=== PATIENT | male | born 1945 | race Caucasian/White ===

== ENCOUNTER 2017-02-25 07:17 | Day surgery (SDC) | payer MEDICARE ==
[2017-02-25] MEDS ORDERED: Sodium Chloride 0.9% 1,000 ML IV SCH (08:00)
[2017-02-25] MEDS ORDERED: Propofol 200 MG/20 ML SDV ONE (08:50)
--- NOTE | 2017-02-25 09:21 | PCM.OPNOTE ---
- General Post-Op/Procedure Note Date of Surgery/Procedure: 02/25/17 Operative Procedure(s): Esophageal gastroduodenoscopy with biopsy of the esophagus and stomach for Helicobacter pylori Findings: Mild gastric mucosal erythema, distal esophagitis, biopsies pending for Helicobacter pylori Pre Op Diagnosis: GERD Post-Op Diagnosis: Retained food in the stomach. Distal esophageal mucosal erythema. Gastric mucosa erythema biopsies pending for Helicobacter pylori. Primary Surgeon: Jc Guillermo Sr Condition: Good Free Text/Narrative:: Sidney is a 71-year-old male comes in because of significant problem with GERD causing significant pain whenever he eats. The risks and benefits were explained to him for an esophageal gastroduodenoscopy with possible biopsy. Anesthesia was given by nurse ecdis n navigation operator. During the procedure use 200 mg of propofol. The Olympus 180 scope was used. The tube was placed into the pharynx and esophagus without difficulty and advanced under direct vision. The distal part of the esophagus revealed erythema picture was taken of this. After entering the stomach noted significant amount of erythema and retained food particles. The pylorus was identified and the tube was placed into the first second part of the duodenum. Upon retraction of the tube noted no significant duodenal erythema there was core noted in the morning as well as in the stomach. The prepyloric area revealed mild erythema. Biopsy was done for Helicobacter pylori, Ramón. We got poor observation of the greater and lesser curvature secondary to retained food particles. We did a biopsy of the distal esophagus area for cytology. The remainder the esophagus was unremarkable we did not get a good observation of the vocal cords secondary to the patient coughing. The tube was removed the patient tolerated the procedure well. Preop: GERD. Postop: #1. Distal esophageal erythema biopsies pending for Helicobacter pylori. #2. Retained food particles in the stomach. #3. Mild gastric mucosal erythema. I will have him return the office once the biopsy is reported to
[2017-02-25 10:17] VITALS: BP 112/59
== END 2017-02-25 10:32 | disposition home or self-care (01) ==
LOC: JP.SDS 07:17
PROVIDERS: ATTEND Internal Medicine
DX: T18.2XXA Foreign body in stomach, initial encounter (principal); K31.89 Other diseases of stomach and duodenum; K22.8 Other specified diseases of esophagus; I10 Essential (primary) hypertension; E78.5 Hyperlipidemia, unspecified; F32.9 Major depressive disorder, single episode, unspecified; K21.9 Gastro-esophageal reflux disease without esophagitis; J44.9 Chronic obstructive pulmonary disease, unspecified; F17.210 Nicotine dependence, cigarettes, uncomplicated; Z88.0 Allergy status to penicillin; Z91.013 Allergy to seafood; Z88.8 Allergy status to other drugs, medicaments and biological substances
CPT/HCPCS: 43239; 87081; J2704; J7040; 88305

== ENCOUNTER 2017-03-04 08:47 | Day surgery (SDC) | payer MEDICARE ==
[2017-03-04] MEDS ORDERED: Sodium Chloride 0.9% 10 ML Syringe FLUSH PRN (09:00)
[2017-03-04 12:11] VITALS: BP 138/80
--- NOTE | 2017-03-04 15:22 | OR ---
DATE OF PROCEDURE: 03/04/2017 POSTOPERATIVE CARE: Postoperative care will be provided mainly at the [address] [place] [address] [facility] in conjunction with [facility]. PREOPERATIVE DIAGNOSIS: Cataract, left eye. PREOPERATIVE DIAGNOSIS: Cataract, left eye. PROCEDURE: Phacoemulsification with intraocular lens placement, left eye. ANESTHESIA: Topical and intracameral. ESTIMATED BLOOD LOSS: Minimal. COMPLICATIONS: None. PATHOLOGY SPECIMENS: None. SURGICAL FINDINGS: None. INDICATION FOR PROCEDURE: The patient is a 71-year-old male with history of a visually significant cataract in the left eye, which interfered with activities of daily living. This consisted of a nuclear sclerosis cataract. Following careful discussion of the risks, benefits and alternatives to cataract extraction with intraocular lens placement including blindness and , the patient elected to proceed, and informed, written consent was obtained prior to the procedure. DESCRIPTION OF THE PROCEDURE: The patient was previously identified, and a renee placed above the left eye. All sources, including the patient, indicated that the left eye was the correct eye. The patient was subsequently taken to the operating room where standard monitors were applied. The patient was then prepped and draped in the usual sterile fashion for ophthalmic surgery. Attention was first directed at the 12 o'clock position where a paracentesis port was fashioned. Shugar solution followed by Viscoat was instilled into the eye. Attention was then directed to the 8:30 position where a triplanar incision was made in a near-clear manner using a keratome. A continuous capsulorrhexis was then made using a combination of the cystotome and Utrata forceps. Hydrodissection was achieved using a balanced salt solution, and the lens rotated nicely. Phacoemulsification was then done using a modified ntyluv-lus-cwvkxev technique without complication. Phaco time was 14.44 CDE. The remaining cortex was removed using the irrigation/aspiration handpiece. Provisc was then instilled into the eye. A Technis lens, model [id number], at 23.5 diopters was then placed in the capsular bag using an [place] injector. The remaining viscoelastic was removed using the irrigation/aspiration forceps. All wounds were then checked and found to be watertight. The lid speculum and drapes were removed. Maxitrol ointment was placed in the patient's left eye, and the eye was shielded. The patient tolerated the procedure well. The patient was instructed to follow up tomorrow. All needle and sponge counts were correct at the end of the procedure. Faye Cook MD /[id number]
== END 2017-03-04 12:19 | disposition home or self-care (01) ==
LOC: JP.SDS 08:47
PROVIDERS: ATTEND Ophthalmology
DX: H26.9 Unspecified cataract (principal); I10 Essential (primary) hypertension; E78.5 Hyperlipidemia, unspecified; F17.200 Nicotine dependence, unspecified, uncomplicated; Z88.0 Allergy status to penicillin; Z88.8 Allergy status to other drugs, medicaments and biological substances; Z91.013 Allergy to seafood
CPT/HCPCS: 66984; C1780; J7050

== ENCOUNTER 2017-04-01 06:54 | Day surgery (SDC) | payer MEDICARE ==
[2017-04-01] MEDS ORDERED: Sodium Chloride 0.9% 10 ML Syringe FLUSH PRN (07:30)
[2017-04-01 09:14] VITALS: BP 153/71
--- NOTE | 2017-04-01 10:22 | OR ---
DATE OF PROCEDURE: 04/01/2017 POSTOPERATIVE CARE: Postoperative care will be provided mainly at the [address] [place] [address] [facility] in conjunction with [facility]. PREOPERATIVE DIAGNOSIS: Cataract, right eye. PREOPERATIVE DIAGNOSIS: Cataract, right eye. PROCEDURE: Phacoemulsification with intraocular lens placement, right eye. ANESTHESIA: Topical and intracameral. ESTIMATED BLOOD LOSS: Minimal. COMPLICATIONS: None. PATHOLOGY SPECIMENS: None. SURGICAL FINDINGS: None. INDICATION FOR PROCEDURE: The patient is a 71-year-old male with history of a visually significant cataract in the right eye, which interfered with activities of daily living. This consisted of a nuclear sclerosis cataract. Following careful discussion of the risks, benefits and alternatives to cataract extraction with intraocular lens placement including blindness and , the patient elected to proceed, and informed, written consent was obtained prior to the procedure. DESCRIPTION OF THE PROCEDURE: The patient was previously identified, and a renee placed above the right eye. All sources, including the patient, indicated that the right eye was the correct eye. The patient was subsequently taken to the operating room where standard monitors were applied. The patient was then prepped and draped in the usual sterile fashion for ophthalmic surgery. Attention was first directed at the 12 o'clock position where a paracentesis port was fashioned. Shugar solution followed by Viscoat was instilled into the eye. Attention was then directed to the 8:30 position where a triplanar incision was made in a near-clear manner using a keratome. A continuous capsulorrhexis was then made using a combination of the cystotome and Utrata forceps. Hydrodissection was achieved using a balanced salt solution, and the lens rotated nicely. Phacoemulsification was then done using a modified vphlmv-xel-efpoqnl technique without complication. Phaco time was 17.73 CDE. The remaining cortex was removed using the irrigation/aspiration handpiece. Provisc was then instilled into the eye. A Technis lens, model [id number], at 22.0 Diopters was then placed in the capsular bag using an Madrone injector. The remaining viscoelastic was removed using the irrigation/aspiration forceps. All wounds were then checked and found to be watertight. The lid speculum and drapes were removed. Maxitrol ointment was placed in the patient's right eye, and the eye was shielded. The patient tolerated the procedure well. The patient was instructed to follow up tomorrow. All needle and sponge counts were correct at the end of the procedure. Faye Cook MD /[id number]
== END 2017-04-01 09:23 | disposition home or self-care (01) ==
LOC: JP.SDS 06:54
PROVIDERS: ATTEND Ophthalmology
DX: H26.9 Unspecified cataract (principal); F17.200 Nicotine dependence, unspecified, uncomplicated; Z88.0 Allergy status to penicillin; Z88.8 Allergy status to other drugs, medicaments and biological substances; Z91.013 Allergy to seafood
CPT/HCPCS: 66984; C1780; J7050

== ENCOUNTER 2017-06-28 21:49 | Emergency (ER) | payer MEDICARE ==
[2017-06-28 22:31] VITALS: BP 139/103
[2017-06-29] MEDS ORDERED: Magnesium Citrate Solution 296 ML Bottle PO ONE (00:28)
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
--- NOTE | 2017-06-29 09:48 | CR ---
Abdomen 2V AP Flat Upright INDICATION: constip FINDINGS: Nonspecific bowel gas pattern. No evidence for small bowel obstruction or free air. Surgic al changes in the abdomen. Moderate stool and gas in the colon and rectum.
== END 2017-06-29 02:01 | disposition home or self-care (01) ==
LOC: JP.ED 21:49
DX: K56.41 Fecal impaction (principal); I25.10 Atherosclerotic heart disease of native coronary artery without angina pectoris; I10 Essential (primary) hypertension; I25.2 Old myocardial infarction; E78.00 Pure hypercholesterolemia, unspecified; J44.9 Chronic obstructive pulmonary disease, unspecified; K21.9 Gastro-esophageal reflux disease without esophagitis; F32.9 Major depressive disorder, single episode, unspecified; E05.90 Thyrotoxicosis, unspecified without thyrotoxic crisis or storm; Z95.1 Presence of aortocoronary bypass graft; Z98.49 Cataract extraction status, unspecified eye; Z98.890 Other specified postprocedural states; Z88.0 Allergy status to penicillin; Z88.8 Allergy status to other drugs, medicaments and biological substances; Z91.013 Allergy to seafood; Z79.82 Long term (current) use of aspirin; Z79.899 Other long term (current) drug therapy; Z87.891 Personal history of nicotine dependence
CPT/HCPCS: 36415; 74020; 80053; 81001; 85025; 99284; A9270; 99283

== ENCOUNTER 2017-08-28 15:02 | Emergency (ER) | payer MEDICARE ==
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
[2017-08-28] MEDS ORDERED: Sodium Chloride 0.9% 10 ML Syringe FLUSH PRN (16:52)
[2017-08-28] MEDS ORDERED: Iopamidol 755 Mg/ML 100 ML Bottle IV SCH (17:00)
[2017-08-28] MEDS ORDERED: Sodium Chloride 0.9% 100 ML IV SCH (17:00)
[2017-08-28 17:54] VITALS: BP 120/72
--- NOTE | 2017-08-30 08:58 | US ---
VL Duplex Lwr Ext Veins Comp FINDINGS: The common femoral through the popliteal veins were assessed with duplex imaging bilaterall y. The veins demonstrate complete compressibility. There is no evidence of intraluminal thrombus. The re is normal phasic variation of the waveform with respirations. There is augmented flow with calf co mpression. IMPRESSION: Normal bilateral lower extremity venous Doppler ultrasound.
--- NOTE | 2017-08-30 09:00 | CR ---
Portable chest Comparison: May 2017. The heart and vascular structures are unchanged. There is scarring in the right upper lung field. The re are no infiltrates or effusions. Impression: 1. Stable exam. No acute findings.
== END 2017-08-28 19:17 | disposition home or self-care (01) ==
LOC: JP.ED 15:02
DX: R06.4 Hyperventilation (principal); J44.9 Chronic obstructive pulmonary disease, unspecified; Z79.899 Other long term (current) drug therapy; Z88.0 Allergy status to penicillin; Z88.8 Allergy status to other drugs, medicaments and biological substances; Z91.013 Allergy to seafood
CPT/HCPCS: 36415; 36600; 71010; 71275; 80053; 81001; 82803; 83880; 84484; 85025; 93005; 93970; 99285; J7030; J7050; Q9967; 93010; 99284

== ENCOUNTER 2017-10-09 10:25 | Inpatient (IN) | payer MEDICARE ==
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
[2017-10-09] MEDS ORDERED: Sodium Chloride 0.9% 10 ML Syringe FLUSH PRN (12:14)
[2017-10-09] MEDS ORDERED: Sodium Chloride 0.9% 1,000 ML IV SCH (12:15)
[2017-10-09] MEDS ORDERED: Iopamidol 755 Mg/ML 100 ML Bottle IV SCH (13:00)
[2017-10-09] MEDS ORDERED: Sodium Chloride 0.9% 100 ML IV SCH (13:00)
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
[2017-10-09] MEDS ORDERED: Albuterol 8 GM Inhaler INH PRN (16:29)
[2017-10-09] MEDS ORDERED: Morphine 2 MG/ML Syringe IVPUSH PRN (16:29)
[2017-10-09] MEDS ORDERED: Ondansetron 4 MG/2 ML SDV IV PRN (16:29)
[2017-10-09] MEDS ORDERED: Levalbuterol HCl 1.25 MG/3 ML Neb NEB SCH (16:29)
[2017-10-09] MEDS ORDERED: Enoxaparin 40 MG/0.4 ML Syringe SUBCUT SCH (16:29)
[2017-10-09] MEDS ORDERED: Albuterol 0.083% 2.5 MG/3 ML Neb Soln NEB PRN (16:29)
[2017-10-09] MEDS ORDERED: oxyCODONE 5 MG Tab PO PRN (16:29)
[2017-10-09] MEDS ORDERED: Docusate Sodium 100 MG Cap PO PRN (16:29)
[2017-10-09] MEDS ORDERED: Polyethylene Glycol 3350 Powder 17 GM Packet PO PRN (16:29)
[2017-10-09] MEDS ORDERED: Magnesium Hydroxide 400 MG/5 ML Susp 30 ML Cup PO PRN (16:29)
[2017-10-09] MEDS ORDERED: Nitroglycerin 0.4 MG Tab.SL SL PRN (16:29)
[2017-10-09] MEDS: Cefepime 2 GM in Sodium Chloride 0.9% 50 ML IV SCH (17:30)
[2017-10-09] MEDS: Lactated Ringers 500 ML IV SCH ×2 (17:55→20:44)
[2017-10-09] MEDS: Levofloxacin/Dextrose 5%-Water 750 MG in Premix Bag 1 BAG IV SCH (18:00)
[2017-10-09] MEDS: Pantoprazole 40 MG Tab.CR PO SCH (18:40)
[2017-10-09] MEDS: Acetaminophen 325 MG Tab PO PRN (19:45)
[2017-10-09] MEDS: atorvaSTATin 20 MG Tab PO SCH (20:59)
[2017-10-09] MEDS: Metoprolol Tartrate 25 MG Tab PO SCH (20:59)
[2017-10-09] MEDS: Albuterol/Ipratropium 3.0-0.5 MG/3 ML Neb Soln NEB SCH (20:59)
[2017-10-09] MEDS ORDERED: Formoterol/Mometasone 200-5 MCG 8.8 GM Inhaler IH SCH (21:00)
[2017-10-09] MEDS: Tamsulosin 0.4 MG Cap.ER PO SCH (21:00)
[2017-10-09] MEDS: Lactated Ringers 1,000 ML IV SCH (22:44)
[2017-10-10] MEDS: Cefepime 2 GM in Sodium Chloride 0.9% 50 ML IV SCH (04:25)
[2017-10-10] MEDS: Albuterol/Ipratropium 3.0-0.5 MG/3 ML Neb Soln NEB SCH ×4 (07:06→20:00)
[2017-10-10] MEDS: Lactated Ringers 1,000 ML IV SCH ×2 (07:11→22:04)
[2017-10-10] MEDS ORDERED: Pantoprazole 40 MG Tab.CR PO SCH (07:30)
[2017-10-10] MEDS ORDERED: Potassium Chloride 20 MEQ Tab.ER PO ONE (08:00)
[2017-10-10] MEDS: Pantoprazole 40 MG Tab.CR PO SCH (08:03)
[2017-10-10] MEDS: Formoterol/Mometasone 200-5 MCG 8.8 GM Inhaler IH SCH ×2 (08:36→20:35)
[2017-10-10] MEDS: Metoprolol Tartrate 25 MG Tab PO SCH ×2 (09:02→20:37)
[2017-10-10] MEDS: Aspirin 81 MG Tab.EC PO SCH (09:03)
--- NOTE | 2017-10-10 09:40 | PCM.PN ---
- General Info Date of Service: 10/10/17 Subjective Update: Mr. Field has remained fairly stable since admission, vital signs have been good other than mild persistent elevation in heart rate. Temperature was elevated on admission but has remained within normal range since that time. He reports less shortness of breath, does have persistent cough with intermittent sputum production. Denies any current symptoms of chest pain or pressure. Troponin level remains elevated but has improved from admission. Functional Status: Reports: Tolerating Diet, Urinating - Review of Systems General: Reports: Fever, Weakness. Denies: Chills Pulmonary: Reports: Shortness of Breath, Cough, Sputum, Wheezing. Denies: Pleuritic Chest Pain, Hemoptysis Cardiovascular: Reports: No Symptoms Gastrointestinal: Reports: No Symptoms Musculoskeletal: Reports: No Symptoms - Patient Data Vitals - Most Recent: Last Vital Signs Temp 100.3 F 10/10/17 08:00 Pulse 98 10/10/17 09:02 Resp 19 10/10/17 08:00 BP 122/58 L 10/10/17 09:02 Pulse Ox 93 L 10/10/17 08:00 Weight - Most Recent: 199 lb 9.6 oz I&O - Last 24 Hours: Intake & Output 10/09/17 10/10/17 10/10/17 22:59 06:59 14:59 Intake Total 1180 2247 Output Total 550 450 550 Balance 630 1797 -550 Lab Results Last 24 Hours: Laboratory Results - last 24 hr 10/09/17 10/09/17 10/10/17 Range/Units 17:25 17:25 06:00 WBC 15.0 H (4.5-11.0) K/uL RBC 3.48 L (4.30-5.90) M/uL Hgb 11.8 L (12.0-15.0) g/dL Hct 35.4 L (40.0-54.0) % MCV 102 H (80-98) fL MCH 34 H (27-31) pg MCHC 33 (32-36) % Plt Count 202 (150-400) K/uL Neut % (Auto) 80 H (36-66) % Lymph % (Auto) 7 L (24-44) % [place] % (Auto) 13 H (2-6) % Eos % (Auto) 0 L (2-4) % Baso % (Auto) 0 (0-1) % Sodium (140-148) mmol/L Potassium (3.6-5.2) mmol/L Chloride (100-108) mmol/L Carbon Dioxide (21-32) mmol/L Anion Gap (5.0-14.0) mmol/L BUN (7-18) mg/dL Creatinine (0.8-1.3) mg/dL Est Cr Clr Drug Dosing mL/min Estimated GFR (MDRD) (>60) Glucose (74-106) mg/dL Lactic Acid 4.0 H (0.4-2.0) mmol/L Calcium (8.5-10.1) mg/dL Magnesium (1.8-2.4) mg/dL Troponin I 0.187 H* (0.000-0.056) ng/mL 10/10/17 10/10/17 Range/Units 06:06 07:37 WBC (4.5-11.0) K/uL RBC (4.30-5.90) M/uL Hgb (12.0-15.0) g/dL Hct (40.0-54.0) % MCV (80-98) fL MCH (27-31) pg MCHC (32-36) % Plt Count (150-400) K/uL Neut % (Auto) (36-66) % Lymph % (Auto) (24-44) % [place] % (Auto) (2-6) % Eos % (Auto) (2-4) % Baso % (Auto) (0-1) % Sodium 140 (140-148) mmol/L Potassium 3.4 L (3.6-5.2) mmol/L Chloride 108 (100-108) mmol/L Carbon Dioxide 24 (21-32) mmol/L Anion Gap 11.4 (5.0-14.0) mmol/L BUN 11 (7-18) mg/dL Creatinine 1.0 (0.8-1.3) mg/dL Est Cr Clr Drug Dosing 68.94 mL/min Estimated GFR (MDRD) > 60 (>60) Glucose 97 (74-106) mg/dL Lactic Acid 1.7 (0.4-2.0) mmol/L Calcium 8.5 (8.5-10.1) mg/dL Magnesium 1.9 (1.8-2.4) mg/dL Troponin I 0.102 H* (0.000-0.056) ng/mL [place] Results Last 24 Hours: Microbiology 10/09/17 22:51 Gram Stain - Final Sputum - Expectorated Med Orders - Current: Current Medications Acetaminophen (Tylenol) 650 mg PO Q4H PRN PRN Reason: Pain (Mild 1-3)/fever Last Admin: 10/09/17 19:45 Dose: 650 mg Albuterol (Proventil Neb Soln) 2.5 mg NEB Q4H PRN PRN Reason: Shortness Of Breath/wheezing Albuterol/Ipratropium (Duoneb 3.0-0.5 Mg/3 Ml) 3 ml NEB QIDRT [facility] Last Admin: 10/10/17 07:06 Dose: 3 ml Aspirin (Halfprin) 81 mg PO DAILY [facility] Last Admin: 10/10/17 09:03 Dose: 81 mg Atorvastatin Calcium (Lipitor) 20 mg PO BEDTIME [facility] Last Admin: 10/09/17 20:59 Dose: 20 mg Docusate Sodium (Colace) 100 mg PO BID PRN PRN Reason: Constipation Enoxaparin Sodium (Lovenox) 40 mg SUBCUT Q24H [facility] Levofloxacin/Dextrose 750 mg/ (Premix) 150 mls @ 100 mls/hr IV Q24H [facility] Last Admin: 10/09/17 18:00 Dose: 100 mls/hr Cefepime HCl 2 gm/ Sodium (Chloride) 100 mls @ 200 mls/hr IV Q12H [facility] Lactated Ringer's (Ringers, Lactated) 1,000 mls @ 60 mls/hr IV ASDIRECTED [facility] Magnesium Hydroxide (Milk Of Magnesia) 30 ml PO Q12H PRN PRN Reason: Constipation Metoprolol Tartrate (Lopressor) 12.5 mg PO BID [facility] Last Admin: 10/10/17 09:02 Dose: 12.5 mg Mometasone Furoate/Formoterol Fumar (Dulera 200-5 Mcg) 2 puff IH BIDRT [facility] Last Admin: 10/10/17 08:36 Dose: 2 puff Morphine Sulfate (Morphine) 2 mg IVPUSH Q30M PRN PRN Reason: Pain (severe 7-10) Nitroglycerin (Nitrostat) 0.4 mg SL Q5M PRN PRN Reason: Chest Pain Non-Formulary Medication (Umeclidinium [place] [Incruse Ellipta*]) 62.5 mcg IH DAILY [facility] Ondansetron HCl (Zofran) 4 mg IV Q4H PRN PRN Reason: Nausea/Vomiting Oxycodone HCl (Oxycodone) 5 mg PO Q4H PRN PRN Reason: Pain (moderate 4-6) Pantoprazole Sodium (Protonix) 40 mg PO ACBREAKFAST [facility] Last Admin: 10/10/17 08:03 Dose: 40 mg Polyethylene Glycol (Miralax) 17 gm PO DAILY PRN PRN Reason: Constipation Ranitidine HCl (Zantac) 75 mg PO BEDTIME PRN PRN Reason: HEARTBURN Last Admin: 10/09/17 20:52 Dose: 75 mg Tamsulosin HCl (Flomax) 0.4 mg PO BEDTIME [facility] Last Admin: 10/09/17 21:00 Dose: 0.4 mg Discontinued Medications Albuterol (Ventolin Hfa) gm INH Q4H PRN PRN Reason: Shortness of Breath Enoxaparin Sodium (Lovenox) 40 mg SUBCUT DAILY [facility] Last Admin: 10/09/17 17:25 Dose: 40 mg Sodium Chloride (Normal Saline) 1,000 mls @ 500 mls/hr IV ASDIRECTED [facility] Last Admin: 10/09/17 14:04 Dose: 500 mls/hr Sodium Chloride (Normal Saline) 100 mls @ 4 mls/sec IV ASDIRECTED [facility] Stop: 10/09/17 23:00 Last Admin: 10/09/17 13:11 Dose: 4 mls/sec Cefepime HCl 2 gm/ Sodium (Chloride) 50 mls @ 100 mls/hr IV Q12H [facility] Last Admin: 10/10/17 04:25 Dose: 100 mls/hr Lactated Ringer's (Ringers, Lactated) 500 mls @ 500 mls/hr IV .BOLUS [facility] Stop: 10/09/17 20:30 Last Admin: 10/09/17 20:44 Dose: 500 mls/hr Lactated Ringer's (Ringers, Lactated) 1,000 mls @ 125 mls/hr IV ASDIRECTED [facility] Last Admin: 10/10/17 07:11 Dose: 125 mls/hr Iopamidol (Isovue-370 (76%)) 100 ml IV . DIRECTED [facility] Stop: 10/09/17 23:00 Last Admin: 10/09/17 13:11 Dose: 100 ml Levalbuterol HCl (Xopenex) 1.25 mg NEB QID [facility] Last Admin: 10/09/17 21:38 Dose: Not Given Mometasone Furoate/Formoterol Fumar (Dulera 200-5 Mcg) 2 puff IH BID [facility] Last Admin: 10/09/17 21:30 Dose: 2 puff Potassium Chloride (Klor-Con M20) 40 meq PO ONETIME ONE Stop: 10/10/17 08:01 Last Admin: 10/10/17 08:12 Dose: 40 meq Sodium Chloride (Saline Flush) 10 ml FLUSH ASDIRECTED PRN PRN Reason: Keep Vein Open - Exam Quality Assessment: Supplemental Oxygen, DVT Prophylaxis General: Alert, Oriented, Cooperative, Mild Distress Lungs: Normal Respiratory Effort, Decreased Breath Sounds, Rhonchi, Wheezing. No: Crackles, Rales, Rub, Stridor Cardiovascular: Regular Rhythm, Tachycardia, Murmurs. No: Irregular Rhythm, Bradycardia GI/Abdominal Exam: Soft, Non-Tender, No Organomegaly, No Distention Extremities: Non-Tender, No Pedal Edema Skin: Warm, Dry - Problem List Review Problem List Initiated/Reviewed/Updated: Yes - My Orders Last 24 Hours: My Active Orders 10/09/17 15:32 Resuscitation Status Routine 10/09/17 16:29 Patient Status [ADT] Routine Ambulate [RC] QID Height and Weight [RC] 0511 Intake and Output [RC] QSHIFT Notify Provider Vital Signs [RC] ASDIRECTED Oxygen Therapy [RC] PRN RT Aerosol Therapy [RC] ASDIRECTED Up With Assistance [RC] ASDIRECTED Up to Chair [RC] QID VTE/DVT Education [RC] Per Unit Routine Vital Signs [RC] Q2H Acetaminophen [Tylenol] 650 mg PO Q4H PRN Albuterol [Proventil Neb Soln] 2.5 mg NEB Q4H PRN Docusate Sodium [Colace] 100 mg PO BID PRN Magnesium Hydroxide [Milk of Magnesia] 30 ml PO Q12H PRN Morphine 2 mg IVPUSH Q30M PRN Ondansetron [Zofran] 4 mg IV Q4H PRN Polyethylene Glycol 3350 [MiraLAX] 17 gm PO DAILY PRN oxyCODONE 5 mg PO Q4H PRN Peripheral IV Insertion Adult [OM.PC] Routine 10/09/17 17:00 Levofloxacin/Dextrose 5%-Water [Levaquin in D5W 750 MG/150 ML] 750 mg Premix Bag 1 bag IV Q24H 10/09/17 18:24 Pantoprazole [ProTONIX] 40 mg PO ACBREAKFAST 10/09/17 21:00 Albuterol/Ipratropium [DuoNeb 3.0-0.5 MG/3 ML] 3 ml NEB QIDRT 10/09/17 22:51 CULTURE RESPIRATORY + SMEAR [RM] Stat 10/09/17 Lunch 2 Gram Sodium Diet [DIET] 10/10/17 08:00 Mometasone/Formoterol [Dulera 200-5 MCG] 2 puff IH BIDRT 10/10/17 09:34 Discontinue Telemetry Monitoring [Cardiac Monitoring Discontinue] [RC] Click to Edit 10/10/17 09:45 Lactated Ringers [Ringers, Lactated] 1,000 ml IV ASDIRECTED 10/10/17 16:00 Enoxaparin [Lovenox] 40 mg SUBCUT Q24H 10/10/17 17:00 Cefepime [Maxipime] 2 gm Sodium Chloride 0.9% [Normal Saline] 100 ml IV Q12H 10/11/17 05:00 BASIC METABOLIC PANEL,BMP [CHEM] Timed CBC WITH AUTO DIFF [HEME] Timed TROPONIN I [CHEM] Timed - Plan Plan:: ASSESSMENT AND PLAN BILATERAL PNEUMONIA WITH SEPSIS-improved since admission, continues to have mild tachycardia but is otherwise been hemodynamically stable. Lactic acid level has normalized and blood pressure is been within the desired range. -Blood and sputum cultures pending -Decrease IV rate lactated Ringer's to 60 mL/h -Expanded IV antibiotic coverage because of history of recent oral antibiotic use; cefepime and levofloxacin CORONARY ARTERY DISEASE-chest pain associated with shortness of breath and elevated troponin as noted above, likely secondary to current pneumonia and hypoxia. Elevated troponin likely related to demand ischemia in the setting of hypoxia and respiratory compromise. Troponin level has improved from admission but remains modestly elevated. -Recheck troponin level in a.m. HYPOXIC RESPIRATORY FAILURE-secondary to bilateral pneumonia and underlying COPD. he is noted to have bilateral expiratory wheezes on exam today, will plan to add IV Solu-Medrol to current regimen -Supplemental oxygen as needed -Nebulized albuterol and duo nebs -Solu-Medrol 40 mg IV every 8 hours -Continue outpatient medical regimen for management of COPD LEFT FACIAL WEAKNESS-this occurred with left arm weakness following his angiogram on Wednesday, no arm weakness today, left facial weakness seems to be improved MAINTENANCE ISSUES -DVT prophylaxis; Lovenox 40 mg subcutaneous daily -GI prophylaxis; continue outpatient PPI therapy -Muller catheter; not indicated -Nutrition; 2 g sodium diet -Nicotine dependence; not required CODE STATUS-FULL CODE ADMISSION STATUS-patient will be admitted to inpatient status, expect at least a 2 night hospital stay for evaluation and management of problems as outlined above. At the time of this admission I do not reasonably expected evaluation and management of this problem will require more than a 96 hour hospital stay. DISPOSITION-anticipate discharge to home after the hospital stay. PRIMARY CARE PROVIDER-Dr. Blaine Guillermo
[2017-10-10] MEDS: methylPREDNISolone Sodium Succinate 40 MG/1 ML SDV IVPUSH SCH ×2 (11:42→17:44)
[2017-10-10] MEDS: INCRUSE ELLIPTA 62.5MCG INHALER (PTOM) INH SCH (15:16)
[2017-10-10] MEDS: Enoxaparin 40 MG/0.4 ML Syringe SUBCUT SCH (15:17)
[2017-10-10] MEDS: Levofloxacin/Dextrose 5%-Water 750 MG in Premix Bag 1 BAG IV SCH (16:39)
[2017-10-10] MEDS: Cefepime 2 GM in Sodium Chloride 0.9% 100 ML IV SCH (18:12)
[2017-10-10] MEDS: atorvaSTATin 20 MG Tab PO SCH (20:38)
[2017-10-10] MEDS: Tamsulosin 0.4 MG Cap.ER PO SCH (20:38)
[2017-10-11] MEDS: methylPREDNISolone Sodium Succinate 40 MG/1 ML SDV IVPUSH SCH ×2 (02:16→09:44)
[2017-10-11] MEDS: Cefepime 2 GM in Sodium Chloride 0.9% 100 ML IV SCH ×2 (05:25→16:23)
[2017-10-11] MEDS: Pantoprazole 40 MG Tab.CR PO SCH (07:36)
[2017-10-11] MEDS: Formoterol/Mometasone 200-5 MCG 8.8 GM Inhaler IH SCH ×2 (07:43→20:52)
[2017-10-11] MEDS: Albuterol/Ipratropium 3.0-0.5 MG/3 ML Neb Soln NEB SCH ×4 (07:43→20:51)
[2017-10-11] MEDS: INCRUSE ELLIPTA 62.5MCG INHALER (PTOM) INH SCH (07:59)
[2017-10-11] MEDS: Metoprolol Tartrate 25 MG Tab PO SCH ×2 (08:12→20:51)
[2017-10-11] MEDS: Aspirin 81 MG Tab.EC PO SCH (08:13)
--- NOTE | 2017-10-11 09:32 | CR ---
Chest 2V INDICATION: sob COMPARISON: 08/28/2017 FINDINGS: Two views. Heart size normal. Sternotomy wires. Bilateral pulmonary infiltrates, right g reater than left. This may represent pneumonia. Atypical appearance of pulmonary edema also possible. No pleural effusions.
--- NOTE | 2017-10-11 11:55 | PCM.PN ---
- General Info Date of Service: 10/11/17 Functional Status: Reports: Pain Controlled, Tolerating Diet - Review of Systems General: Denies: Fever Pulmonary: Reports: Shortness of Breath, Cough Cardiovascular: Denies: Chest Pain Systems Review Comment:: No acute events overnight. Clinically he feels better with less shortness of breath and minimal cough. He has not had any fevers. He does continue to require 3 L of supplemental oxygen and this requirement has been stable. No complaints of pleuritic chest pain. Cultures have been negative so far. Vital signs have been stable. - Patient Data Vitals - Most Recent: Last Vital Signs Temp 36.3 C 10/11/17 11:11 Pulse 76 10/11/17 11:17 Resp 18 10/11/17 11:11 BP 129/58 L 10/11/17 11:11 Pulse Ox 91 L 10/11/17 11:17 Weight - Most Recent: 89.675 kg I&O - Last 24 Hours: Intake & Output 10/10/17 10/11/17 10/11/17 22:59 06:59 14:59 Intake Total 1110 743 240 Output Total 1250 350 850 Balance -140 393 -610 Lab Results Last 24 Hours: Laboratory Results - last 24 hr 10/11/17 10/11/17 Range/Units 05:45 05:45 WBC 7.1 (4.5-11.0) K/uL RBC 3.60 L (4.30-5.90) M/uL Hgb 12.0 (12.0-15.0) g/dL Hct 36.3 L (40.0-54.0) % MCV 101 H (80-98) fL MCH 33 H (27-31) pg MCHC 33 (32-36) % Plt Count 209 (150-400) K/uL Neut % (Auto) 91 H (36-66) % Lymph % (Auto) 5 L (24-44) % [place] % (Auto) 4 (2-6) % Eos % (Auto) 0 L (2-4) % Baso % (Auto) 0 (0-1) % Sodium 139 L (140-148) mmol/L Potassium 3.8 (3.6-5.2) mmol/L Chloride 108 (100-108) mmol/L Carbon Dioxide 23 (21-32) mmol/L Anion Gap 11.8 (5.0-14.0) mmol/L BUN 12 (7-18) mg/dL Creatinine 0.9 (0.8-1.3) mg/dL Est Cr Clr Drug Dosing 76.60 mL/min Estimated GFR (MDRD) > 60 (>60) Glucose 136 H (74-106) mg/dL Calcium 9.1 (8.5-10.1) mg/dL Troponin I 0.020 (0.000-0.056) ng/mL [place] Results Last 24 Hours: Microbiology 10/09/17 22:51 Gram Stain - Final Sputum - Expectorated Respiratory Culture - Preliminary NORMAL RESPIRATORY SHABBIR 1 DAY Med Orders - Current: Current Medications Acetaminophen (Tylenol) 650 mg PO Q4H PRN PRN Reason: Pain (Mild 1-3)/fever Last Admin: 10/09/17 19:45 Dose: 650 mg Albuterol (Proventil Neb Soln) 2.5 mg NEB Q4H PRN PRN Reason: Shortness Of Breath/wheezing Albuterol/Ipratropium (Duoneb 3.0-0.5 Mg/3 Ml) 3 ml NEB QIDRT [facility] Last Admin: 10/11/17 11:17 Dose: 3 ml Aspirin (Halfprin) 81 mg PO DAILY [facility] Last Admin: 10/11/17 08:13 Dose: 81 mg Atorvastatin Calcium (Lipitor) 20 mg PO BEDTIME [facility] Last Admin: 10/10/17 20:38 Dose: 20 mg Docusate Sodium (Colace) 100 mg PO BID PRN PRN Reason: Constipation Enoxaparin Sodium (Lovenox) 40 mg SUBCUT Q24H [facility] Last Admin: 10/10/17 15:17 Dose: 40 mg Levofloxacin/Dextrose 750 mg/ (Premix) 150 mls @ 100 mls/hr IV Q24H [facility] Last Admin: 10/10/17 16:39 Dose: 100 mls/hr Cefepime HCl 2 gm/ Sodium (Chloride) 100 mls @ 200 mls/hr IV Q12H [facility] Last Admin: 10/11/17 05:25 Dose: 200 mls/hr Lactated Ringer's (Ringers, Lactated) 1,000 mls @ 25 mls/hr IV ASDIRECTED [facility] Last Admin: 10/10/17 22:04 Dose: 60 mls/hr Magnesium Hydroxide (Milk Of Magnesia) 30 ml PO Q12H PRN PRN Reason: Constipation Metoprolol Tartrate (Lopressor) 12.5 mg PO BID [facility] Last Admin: 10/11/17 08:12 Dose: 12.5 mg Mometasone Furoate/Formoterol Fumar (Dulera 200-5 Mcg) 2 puff IH BIDRT [facility] Last Admin: 10/11/17 07:43 Dose: 2 puff Morphine Sulfate (Morphine) 2 mg IVPUSH Q30M PRN PRN Reason: Pain (severe 7-10) Nitroglycerin (Nitrostat) 0.4 mg SL Q5M PRN PRN Reason: Chest Pain Ondansetron HCl (Zofran) 4 mg IV Q4H PRN PRN Reason: Nausea/Vomiting Oxycodone HCl (Oxycodone) 5 mg PO Q4H PRN PRN Reason: Pain (moderate 4-6) Pantoprazole Sodium (Protonix) 40 mg PO ACBREAKFAST [facility] Last Admin: 10/11/17 07:36 Dose: 40 mg Incruse Ellipta 62. (5mcg Inhaler (Ptom)) 0 each INH DAILYRT [facility] Last Admin: 10/11/17 07:59 Dose: 1 each Polyethylene Glycol (Miralax) 17 gm PO DAILY PRN PRN Reason: Constipation Ranitidine HCl (Zantac) 75 mg PO BEDTIME PRN PRN Reason: HEARTBURN Last Admin: 10/09/17 20:52 Dose: 75 mg Tamsulosin HCl (Flomax) 0.4 mg PO BEDTIME [facility] Last Admin: 10/10/17 20:38 Dose: 0.4 mg Discontinued Medications Albuterol (Ventolin Hfa) gm INH Q4H PRN PRN Reason: Shortness of Breath Enoxaparin Sodium (Lovenox) 40 mg SUBCUT DAILY [facility] Last Admin: 10/09/17 17:25 Dose: 40 mg Sodium Chloride (Normal Saline) 1,000 mls @ 500 mls/hr IV ASDIRECTED [facility] Last Admin: 10/09/17 14:04 Dose: 500 mls/hr Sodium Chloride (Normal Saline) 100 mls @ 4 mls/sec IV ASDIRECTED [facility] Stop: 10/09/17 23:00 Last Admin: 10/09/17 13:11 Dose: 4 mls/sec Cefepime HCl 2 gm/ Sodium (Chloride) 50 mls @ 100 mls/hr IV Q12H [facility] Last Admin: 10/10/17 04:25 Dose: 100 mls/hr Lactated Ringer's (Ringers, Lactated) 500 mls @ 500 mls/hr IV .BOLUS [facility] Stop: 10/09/17 20:30 Last Admin: 10/09/17 20:44 Dose: 500 mls/hr Lactated Ringer's (Ringers, Lactated) 1,000 mls @ 125 mls/hr IV ASDIRECTED [facility] Last Admin: 10/10/17 07:11 Dose: 125 mls/hr Iopamidol (Isovue-370 (76%)) 100 ml IV . DIRECTED [facility] Stop: 10/09/17 23:00 Last Admin: 10/09/17 13:11 Dose: 100 ml Levalbuterol HCl (Xopenex) 1.25 mg NEB QID [facility] Last Admin: 10/09/17 21:38 Dose: Not Given Methylprednisolone Sodium Succinate (Solu-Medrol) 40 mg IVPUSH Q8H [facility] Last Admin: 10/11/17 09:44 Dose: 40 mg Mometasone Furoate/Formoterol Fumar (Dulera 200-5 Mcg) 2 puff IH BID [facility] Last Admin: 10/09/17 21:30 Dose: 2 puff Potassium Chloride (Klor-Con M20) 40 meq PO ONETIME ONE Stop: 10/10/17 08:01 Last Admin: 10/10/17 08:12 Dose: 40 meq Sodium Chloride (Saline Flush) 10 ml FLUSH ASDIRECTED PRN PRN Reason: Keep Vein Open - Exam Quality Assessment: Supplemental Oxygen General: Alert, Oriented, Cooperative, No Acute Distress Neck: Supple Lungs: Normal Respiratory Effort, Crackles (right mid and lower lung ) Cardiovascular: Regular Rate, Regular Rhythm, Murmurs GI/Abdominal Exam: Soft, No Distention Extremities: No Pedal Edema Psy/Mental Status: Alert, Normal Affect - Problem List Review Problem List Initiated/Reviewed/Updated: Yes - My Orders Last 24 Hours: My Active Orders 10/11/17 16:30 predniSONE 20 mg PO BIDAC - Plan Plan:: ASSESSMENT AND PLAN BILATERAL PNEUMONIA WITH SEPSIS - sepsis has resolved. Clinically feeling better but still requiring 3 L of supplemental oxygen. Cultures have been negative so far. He is not having any fevers. -Continue current antibiotics -IV fluid at to keep open -Supplement oxygen -Follow-up cultures Elevated troponin - he does have known coronary artery disease and had a low level troponin elevation at the time of admission. This level has normalized now. I suspect that the troponin leak was related to demand ischemia in the setting of significant pneumonia rather than an acute coronary event. He did have a recent angiogram and did not have any obstruction that was amenable to percutaneous intervention. -Continue medical management for coronary artery disease HYPOXIC RESPIRATORY FAILURE - secondary to bilateral pneumonia and underlying COPD. wheezing has resolved. Still requiring supplemental oxygen. -Supplemental oxygen as needed -Nebulized albuterol and duo nebs -Transition to prednisone -Continue outpatient medical regimen for management of COPD LEFT FACIAL WEAKNESS - this occurred with left arm weakness following his angiogram on 10/08. He has not had recurrence during the hospital stay. MAINTENANCE ISSUES -DVT prophylaxis; enoxaparin 40 mg subcutaneous daily -GI prophylaxis; continue outpatient PPI therapy -Muller catheter; not indicated -Nutrition; 2 g sodium diet DISPOSITION - anticipate discharge to home after the hospital stay. Kingsley Hardin M.D.
[2017-10-11] MEDS: predniSONE 20 MG Tab PO SCH (16:13)
[2017-10-11] MEDS: Enoxaparin 40 MG/0.4 ML Syringe SUBCUT SCH (16:13)
[2017-10-11] MEDS: Levofloxacin/Dextrose 5%-Water 750 MG in Premix Bag 1 BAG IV SCH (18:06)
[2017-10-11] MEDS: atorvaSTATin 20 MG Tab PO SCH (20:51)
[2017-10-11] MEDS: Tamsulosin 0.4 MG Cap.ER PO SCH (20:51)
[2017-10-12] MEDS: Lactated Ringers 1,000 ML IV SCH (01:51)
[2017-10-12] MEDS: Cefepime 2 GM in Sodium Chloride 0.9% 100 ML IV SCH ×2 (04:37→18:01)
[2017-10-12] MEDS: INCRUSE ELLIPTA 62.5MCG INHALER (PTOM) INH SCH (07:26)
[2017-10-12] MEDS: Formoterol/Mometasone 200-5 MCG 8.8 GM Inhaler IH SCH ×2 (07:26→21:40)
[2017-10-12] MEDS: Albuterol/Ipratropium 3.0-0.5 MG/3 ML Neb Soln NEB SCH ×4 (07:26→21:39)
[2017-10-12] MEDS: predniSONE 20 MG Tab PO SCH ×2 (08:32→16:26)
[2017-10-12] MEDS: Aspirin 81 MG Tab.EC PO SCH (08:33)
[2017-10-12] MEDS: Metoprolol Tartrate 25 MG Tab PO SCH ×2 (08:33→21:42)
[2017-10-12] MEDS: Pantoprazole 40 MG Tab.CR PO SCH (08:33)
--- NOTE | 2017-10-12 13:08 | PCM.PN ---
- General Info Date of Service: 10/12/17 Functional Status: Reports: Pain Controlled, Tolerating Diet, Ambulating - Review of Systems General: Reports: Weakness Pulmonary: Reports: Shortness of Breath, Cough Systems Review Comment:: No acute events overnight. He has not had any fevers. He has been able to increase his activity some. He feels less short of breath today. Supplemental oxygen is now down to 2-2.5 L/m. Cultures remain negative. Vital signs have been otherwise stable. Appetite has been good. - Patient Data Vitals - Most Recent: Last Vital Signs Temp 36.2 C 10/12/17 11:32 Pulse 53 L 10/12/17 11:32 Resp 16 10/12/17 11:32 BP 128/64 10/12/17 11:32 Pulse Ox 95 10/12/17 11:32 Weight - Most Recent: 89.403 kg I&O - Last 24 Hours: Intake & Output 10/11/17 10/12/17 10/12/17 22:59 06:59 14:59 Intake Total 490 668 360 Output Total 450 400 Balance 490 218 -40 [place] Results Last 24 Hours: Microbiology 10/09/17 22:51 Gram Stain - Final Sputum - Expectorated Respiratory Culture - Final NORMAL RESPIRATORY SHABBIR 2 DAYS Med Orders - Current: Current Medications Acetaminophen (Tylenol) 650 mg PO Q4H PRN PRN Reason: Pain (Mild 1-3)/fever Last Admin: 10/09/17 19:45 Dose: 650 mg Albuterol (Proventil Neb Soln) 2.5 mg NEB Q4H PRN PRN Reason: Shortness Of Breath/wheezing Albuterol/Ipratropium (Duoneb 3.0-0.5 Mg/3 Ml) 3 ml NEB QIDRT [facility] Last Admin: 10/12/17 10:56 Dose: 3 ml Aspirin (Halfprin) 81 mg PO DAILY [facility] Last Admin: 10/12/17 08:33 Dose: 81 mg Atorvastatin Calcium (Lipitor) 20 mg PO BEDTIME [facility] Last Admin: 10/11/17 20:51 Dose: 20 mg Docusate Sodium (Colace) 100 mg PO BID PRN PRN Reason: Constipation Enoxaparin Sodium (Lovenox) 40 mg SUBCUT Q24H [facility] Last Admin: 10/11/17 16:13 Dose: 40 mg Levofloxacin/Dextrose 750 mg/ (Premix) 150 mls @ 100 mls/hr IV Q24H [facility] Last Admin: 10/11/17 18:06 Dose: 100 mls/hr Cefepime HCl 2 gm/ Sodium (Chloride) 100 mls @ 200 mls/hr IV Q12H [facility] Last Admin: 10/12/17 04:37 Dose: 200 mls/hr Lactated Ringer's (Ringers, Lactated) 1,000 mls @ 25 mls/hr IV ASDIRECTED [facility] Last Admin: 10/12/17 01:51 Dose: 60 mls/hr Magnesium Hydroxide (Milk Of Magnesia) 30 ml PO Q12H PRN PRN Reason: Constipation Metoprolol Tartrate (Lopressor) 12.5 mg PO BID [facility] Last Admin: 10/12/17 08:33 Dose: 12.5 mg Mometasone Furoate/Formoterol Fumar (Dulera 200-5 Mcg) 2 puff IH BIDRT [facility] Last Admin: 10/12/17 07:26 Dose: 2 puff Morphine Sulfate (Morphine) 2 mg IVPUSH Q30M PRN PRN Reason: Pain (severe 7-10) Nitroglycerin (Nitrostat) 0.4 mg SL Q5M PRN PRN Reason: Chest Pain Ondansetron HCl (Zofran) 4 mg IV Q4H PRN PRN Reason: Nausea/Vomiting Oxycodone HCl (Oxycodone) 5 mg PO Q4H PRN PRN Reason: Pain (moderate 4-6) Pantoprazole Sodium (Protonix) 40 mg PO ACBREAKFAST [facility] Last Admin: 10/12/17 08:33 Dose: 40 mg Incruse Ellipta 62. (5mcg Inhaler (Ptom)) 0 each INH DAILYRT [facility] Last Admin: 10/12/17 07:26 Dose: 1 each Polyethylene Glycol (Miralax) 17 gm PO DAILY PRN PRN Reason: Constipation Prednisone (Prednisone) 20 mg PO BIDAC [facility] Last Admin: 10/12/17 08:32 Dose: 20 mg Ranitidine HCl (Zantac) 75 mg PO BEDTIME PRN PRN Reason: HEARTBURN Last Admin: 10/09/17 20:52 Dose: 75 mg Tamsulosin HCl (Flomax) 0.4 mg PO BEDTIME [facility] Last Admin: 10/11/17 20:51 Dose: 0.4 mg Discontinued Medications Albuterol (Ventolin Hfa) gm INH Q4H PRN PRN Reason: Shortness of Breath Enoxaparin Sodium (Lovenox) 40 mg SUBCUT DAILY [facility] Last Admin: 10/09/17 17:25 Dose: 40 mg Sodium Chloride (Normal Saline) 1,000 mls @ 500 mls/hr IV ASDIRECTED [facility] Last Admin: 10/09/17 14:04 Dose: 500 mls/hr Sodium Chloride (Normal Saline) 100 mls @ 4 mls/sec IV ASDIRECTED [facility] Stop: 10/09/17 23:00 Last Admin: 10/09/17 13:11 Dose: 4 mls/sec Cefepime HCl 2 gm/ Sodium (Chloride) 50 mls @ 100 mls/hr IV Q12H [facility] Last Admin: 10/10/17 04:25 Dose: 100 mls/hr Lactated Ringer's (Ringers, Lactated) 500 mls @ 500 mls/hr IV .BOLUS [facility] Stop: 10/09/17 20:30 Last Admin: 10/09/17 20:44 Dose: 500 mls/hr Lactated Ringer's (Ringers, Lactated) 1,000 mls @ 125 mls/hr IV ASDIRECTED [facility] Last Admin: 10/10/17 07:11 Dose: 125 mls/hr Iopamidol (Isovue-370 (76%)) 100 ml IV . DIRECTED [facility] Stop: 10/09/17 23:00 Last Admin: 10/09/17 13:11 Dose: 100 ml Levalbuterol HCl (Xopenex) 1.25 mg NEB QID [facility] Last Admin: 10/09/17 21:38 Dose: Not Given Methylprednisolone Sodium Succinate (Solu-Medrol) 40 mg IVPUSH Q8H [facility] Last Admin: 10/11/17 09:44 Dose: 40 mg Mometasone Furoate/Formoterol Fumar (Dulera 200-5 Mcg) 2 puff IH BID [facility] Last Admin: 10/09/17 21:30 Dose: 2 puff Potassium Chloride (Klor-Con M20) 40 meq PO ONETIME ONE Stop: 10/10/17 08:01 Last Admin: 10/10/17 08:12 Dose: 40 meq Sodium Chloride (Saline Flush) 10 ml FLUSH ASDIRECTED PRN PRN Reason: Keep Vein Open - Exam Quality Assessment: Supplemental Oxygen General: Alert, Oriented, Cooperative, No Acute Distress Neck: Supple Lungs: Normal Respiratory Effort, Crackles (rare right lung base). No: Wheezing Cardiovascular: Regular Rate, Regular Rhythm GI/Abdominal Exam: Soft, No Distention Extremities: No Pedal Edema Psy/Mental Status: Alert, Normal Affect - Problem List Review Problem List Initiated/Reviewed/Updated: Yes - My Orders Last 24 Hours: My Active Orders 10/11/17 16:30 predniSONE 20 mg PO BIDAC - Plan Plan:: ASSESSMENT AND PLAN BILATERAL PNEUMONIA WITH SEPSIS - sepsis has resolved. Clinically feeling better and supplemental oxygen requirement has been slowly decreasing. No evidence for volume overload. Clinical exam improving daily. -Continue current antibiotics, de-escalate tomorrow -IV fluid at to keep open -Supplement oxygen -Follow-up cultures HYPOXIC RESPIRATORY FAILURE - secondary to bilateral pneumonia and underlying COPD. no active wheezing. Still requiring supplemental oxygen. -Supplemental oxygen as needed -Nebulized albuterol and duo nebs -Continue prednisone -Continue outpatient medical regimen for management of COPD Elevated troponin - he does have known coronary artery disease and had a low level troponin elevation at the time of admission. This level has normalized now. I suspect that the troponin leak was related to demand ischemia in the setting of significant pneumonia rather than an acute coronary event. He did have a recent angiogram and did not have any obstruction that was amenable to percutaneous intervention. -Continue medical management for coronary artery disease LEFT FACIAL WEAKNESS - this occurred with left arm weakness following his angiogram on 10/08. He has not had recurrence during the hospital stay. MAINTENANCE ISSUES -DVT prophylaxis; enoxaparin 40 mg subcutaneous daily -GI prophylaxis; continue outpatient PPI therapy -Nutrition; 2 g sodium diet DISPOSITION - anticipate discharge to home after the hospital stay, hopefully in the next day or 2. Kingsley Hardin M.D.
[2017-10-12] MEDS: Enoxaparin 40 MG/0.4 ML Syringe SUBCUT SCH (16:26)
[2017-10-12] MEDS: Levofloxacin/Dextrose 5%-Water 750 MG in Premix Bag 1 BAG IV SCH (16:26)
[2017-10-12] MEDS: Tamsulosin 0.4 MG Cap.ER PO SCH (21:41)
[2017-10-12] MEDS: atorvaSTATin 20 MG Tab PO SCH (21:41)
[2017-10-13] MEDS: Cefepime 2 GM in Sodium Chloride 0.9% 100 ML IV SCH (04:51)
[2017-10-13] MEDS: Albuterol/Ipratropium 3.0-0.5 MG/3 ML Neb Soln NEB SCH ×4 (07:15→21:33)
[2017-10-13] MEDS: INCRUSE ELLIPTA 62.5MCG INHALER (PTOM) INH SCH (07:15)
[2017-10-13] MEDS: Formoterol/Mometasone 200-5 MCG 8.8 GM Inhaler IH SCH ×2 (07:15→21:33)
[2017-10-13] MEDS: Pantoprazole 40 MG Tab.CR PO SCH (08:24)
[2017-10-13] MEDS: predniSONE 20 MG Tab PO SCH (08:26)
[2017-10-13] MEDS: Aspirin 81 MG Tab.EC PO SCH (08:26)
[2017-10-13] MEDS: Metoprolol Tartrate 25 MG Tab PO SCH ×2 (08:40→21:33)
--- NOTE | 2017-10-13 09:19 | PCM.PN ---
- General Info Date of Service: 10/13/17 Functional Status: Reports: Pain Controlled, Tolerating Diet, Ambulating - Review of Systems General: Reports: Weakness Pulmonary: Reports: Shortness of Breath Systems Review Comment:: No acute events overnight. Supplemental oxygen requirement continues to decrease and he is now down to 1 L. He has been able to walk a little bit further in the past 24 hours than he had been. He does get fatigued and short of breath with activity but is able to make it a good distance down the hallway and back. Bowels have been moving. No complaints of chest pain. No fevers. - Patient Data Vitals - Most Recent: Last Vital Signs Temp 36.3 C 10/13/17 07:00 Pulse 87 10/13/17 08:40 Resp 18 10/13/17 07:00 BP 126/64 10/13/17 08:40 Pulse Ox 94 L 10/13/17 07:16 Weight - Most Recent: 89.925 kg I&O - Last 24 Hours: Intake & Output 10/12/17 10/13/17 10/13/17 22:59 06:59 14:59 Intake Total 1013 840 Output Total 600 1025 500 Balance 413 -185 -500 [place] Results Last 24 Hours: Microbiology 10/09/17 22:51 Gram Stain - Final Sputum - Expectorated Respiratory Culture - Final NORMAL RESPIRATORY SHABBIR 2 DAYS Med Orders - Current: Current Medications Acetaminophen (Tylenol) 650 mg PO Q4H PRN PRN Reason: Pain (Mild 1-3)/fever Last Admin: 10/09/17 19:45 Dose: 650 mg Albuterol (Proventil Neb Soln) 2.5 mg NEB Q4H PRN PRN Reason: Shortness Of Breath/wheezing Albuterol/Ipratropium (Duoneb 3.0-0.5 Mg/3 Ml) 3 ml NEB QIDRT [facility] Last Admin: 10/13/17 07:15 Dose: 3 ml Aspirin (Halfprin) 81 mg PO DAILY [facility] Last Admin: 10/13/17 08:26 Dose: 81 mg Atorvastatin Calcium (Lipitor) 20 mg PO BEDTIME [facility] Last Admin: 10/12/17 21:41 Dose: 20 mg Docusate Sodium (Colace) 100 mg PO BID PRN PRN Reason: Constipation Enoxaparin Sodium (Lovenox) 40 mg SUBCUT Q24H [facility] Last Admin: 10/12/17 16:26 Dose: 40 mg Levofloxacin (Levaquin) 500 mg PO Q24H [facility] Levofloxacin (Levaquin) 250 mg PO Q24H [facility] Magnesium Hydroxide (Milk Of Magnesia) 30 ml PO Q12H PRN PRN Reason: Constipation Metoprolol Tartrate (Lopressor) 12.5 mg PO BID [facility] Last Admin: 10/13/17 08:40 Dose: 12.5 mg Mometasone Furoate/Formoterol Fumar (Dulera 200-5 Mcg) 2 puff IH BIDRT [facility] Last Admin: 10/13/17 07:15 Dose: 2 puff Morphine Sulfate (Morphine) 2 mg IVPUSH Q30M PRN PRN Reason: Pain (severe 7-10) Nitroglycerin (Nitrostat) 0.4 mg SL Q5M PRN PRN Reason: Chest Pain Ondansetron HCl (Zofran) 4 mg IV Q4H PRN PRN Reason: Nausea/Vomiting Oxycodone HCl (Oxycodone) 5 mg PO Q4H PRN PRN Reason: Pain (moderate 4-6) Pantoprazole Sodium (Protonix) 40 mg PO ACBREAKFAST [facility] Last Admin: 10/13/17 08:24 Dose: 40 mg Incruse Ellipta 62. (5mcg Inhaler (Ptom)) 0 each INH DAILYRT [facility] Last Admin: 10/13/17 07:15 Dose: 1 each Polyethylene Glycol (Miralax) 17 gm PO DAILY PRN PRN Reason: Constipation Prednisone (Prednisone) 20 mg PO WITHBREAKFAST [facility] Ranitidine HCl (Zantac) 75 mg PO BEDTIME PRN PRN Reason: HEARTBURN Last Admin: 10/09/17 20:52 Dose: 75 mg Tamsulosin HCl (Flomax) 0.4 mg PO BEDTIME [facility] Last Admin: 10/12/17 21:41 Dose: 0.4 mg Discontinued Medications Albuterol (Ventolin Hfa) gm INH Q4H PRN PRN Reason: Shortness of Breath Enoxaparin Sodium (Lovenox) 40 mg SUBCUT DAILY [facility] Last Admin: 10/09/17 17:25 Dose: 40 mg Sodium Chloride (Normal Saline) 1,000 mls @ 500 mls/hr IV ASDIRECTED [facility] Last Admin: 10/09/17 14:04 Dose: 500 mls/hr Sodium Chloride (Normal Saline) 100 mls @ 4 mls/sec IV ASDIRECTED [facility] Stop: 10/09/17 23:00 Last Admin: 10/09/17 13:11 Dose: 4 mls/sec Cefepime HCl 2 gm/ Sodium (Chloride) 50 mls @ 100 mls/hr IV Q12H [facility] Last Admin: 10/10/17 04:25 Dose: 100 mls/hr Lactated Ringer's (Ringers, Lactated) 500 mls @ 500 mls/hr IV .BOLUS [facility] Stop: 10/09/17 20:30 Last Admin: 10/09/17 20:44 Dose: 500 mls/hr Lactated Ringer's (Ringers, Lactated) 1,000 mls @ 125 mls/hr IV ASDIRECTED [facility] Last Admin: 10/10/17 07:11 Dose: 125 mls/hr Levofloxacin/Dextrose 750 mg/ (Premix) 150 mls @ 100 mls/hr IV Q24H [facility] Last Admin: 10/12/17 16:26 Dose: 100 mls/hr Cefepime HCl 2 gm/ Sodium (Chloride) 100 mls @ 200 mls/hr IV Q12H [facility] Last Admin: 10/13/17 04:51 Dose: 200 mls/hr Lactated Ringer's (Ringers, Lactated) 1,000 mls @ 25 mls/hr IV ASDIRECTED [facility] Last Admin: 10/12/17 01:51 Dose: 60 mls/hr Iopamidol (Isovue-370 (76%)) 100 ml IV . DIRECTED [facility] Stop: 10/09/17 23:00 Last Admin: 10/09/17 13:11 Dose: 100 ml Levalbuterol HCl (Xopenex) 1.25 mg NEB QID [facility] Last Admin: 10/09/17 21:38 Dose: Not Given Methylprednisolone Sodium Succinate (Solu-Medrol) 40 mg IVPUSH Q8H [facility] Last Admin: 10/11/17 09:44 Dose: 40 mg Mometasone Furoate/Formoterol Fumar (Dulera 200-5 Mcg) 2 puff IH BID [facility] Last Admin: 10/09/17 21:30 Dose: 2 puff Potassium Chloride (Klor-Con M20) 40 meq PO ONETIME ONE Stop: 10/10/17 08:01 Last Admin: 10/10/17 08:12 Dose: 40 meq Prednisone (Prednisone) 20 mg PO BIDAC [facility] Last Admin: 10/13/17 08:26 Dose: 20 mg Sodium Chloride (Saline Flush) 10 ml FLUSH ASDIRECTED PRN PRN Reason: Keep Vein Open - Exam Quality Assessment: Supplemental Oxygen General: Alert, Oriented, Cooperative, No Acute Distress Lungs: Clear to Auscultation, Normal Respiratory Effort, Crackles (rare right lung base) Cardiovascular: Regular Rate, Regular Rhythm, Murmurs GI/Abdominal Exam: No Distention Extremities: No Pedal Edema Psy/Mental Status: Alert, Normal Affect - Problem List Review Problem List Initiated/Reviewed/Updated: Yes - My Orders Last 24 Hours: My Active Orders 10/12/17 Dinner Regular Diet [DIET] 10/13/17 09:14 Convert IV to Saline Lock [OM.PC] Routine 10/13/17 17:00 Levofloxacin [Levaquin] 250 mg PO Q24H Levofloxacin [Levaquin] 500 mg PO Q24H 10/14/17 08:00 predniSONE 20 mg PO WITHBREAKFAST - Plan Plan:: ASSESSMENT AND PLAN BILATERAL PNEUMONIA WITH SEPSIS - sepsis has resolved. Ongoing clinical improvement but still requiring supplemental oxygen. I suspect that we will be able to wean him off the oxygen the next 24 hours. Cultures have all been negative. -Discontinue cefepime -Change levofloxacin to oral -Saline lock IV -Supplement oxygen HYPOXIC RESPIRATORY FAILURE - secondary to bilateral pneumonia and underlying COPD. no active wheezing. Still requiring supplemental oxygen but continues to improve. -Supplemental oxygen as needed -Nebulized albuterol and duo nebs -Continue prednisone, decrease to once daily starting today -Continue outpatient medical regimen for management of COPD Elevated troponin - he does have known coronary artery disease and had a low level troponin elevation at the time of admission. This level has normalized now. I suspect that the troponin leak was related to demand ischemia in the setting of significant pneumonia rather than an acute coronary event. He did have a recent angiogram and did not have any obstruction that was amenable to percutaneous intervention. -Continue medical management for coronary artery disease LEFT FACIAL WEAKNESS - this occurred with left arm weakness following his angiogram on 10/08. No recurrence. MAINTENANCE ISSUES -DVT prophylaxis; enoxaparin 40 mg subcutaneous daily -GI prophylaxis; continue outpatient PPI therapy -Nutrition; regular diet DISPOSITION - anticipate discharge to home after the hospital stay, hopefully tomorrow. Kingsley Hardin M.D.
[2017-10-13] MEDS: Enoxaparin 40 MG/0.4 ML Syringe SUBCUT SCH (16:03)
[2017-10-13] MEDS ORDERED: Levofloxacin 250 MG Tab PO SCH (17:00)
[2017-10-13] MEDS ORDERED: Levofloxacin 500 MG Tab PO SCH (17:00)
[2017-10-13] MEDS: atorvaSTATin 20 MG Tab PO SCH (21:33)
[2017-10-13] MEDS: Tamsulosin 0.4 MG Cap.ER PO SCH (21:33)
[2017-10-14] MEDS: Acetaminophen 325 MG Tab PO PRN (03:17)
[2017-10-14 07:13] VITALS: BP 128/67
[2017-10-14] MEDS: Albuterol/Ipratropium 3.0-0.5 MG/3 ML Neb Soln NEB SCH ×2 (07:27→10:50)
[2017-10-14] MEDS: Formoterol/Mometasone 200-5 MCG 8.8 GM Inhaler IH SCH (07:28)
[2017-10-14] MEDS: INCRUSE ELLIPTA 62.5MCG INHALER (PTOM) INH SCH (07:29)
[2017-10-14] MEDS: Pantoprazole 40 MG Tab.CR PO SCH (07:59)
[2017-10-14] MEDS ORDERED: predniSONE 20 MG Tab PO SCH (08:00)
[2017-10-14] MEDS: Aspirin 81 MG Tab.EC PO SCH (08:01)
[2017-10-14] MEDS: Metoprolol Tartrate 25 MG Tab PO SCH (08:01)
--- NOTE | 2017-10-14 10:08 | PCM.DCSUM1 ---
Discharge Summary - Hospital Course Brief History: 71-year-old male with history of coronary artery disease and COPD with emphysema who presented with fever, cough and shortness of breath. He is admitted for management of bilateral pneumonia with sepsis syndrome. - Discharge Data Discharge Date: 10/14/17 Discharge Disposition: Home, Self-Care 01 Condition: Fair - Discharge Diagnosis/Problem(s) (1) Sepsis SNOMED Code(s): 21507011 ICD Code: A41.9 - SEPSIS, UNSPECIFIED ORGANISM Status: Acute Qualifiers: Sepsis type: sepsis due to unspecified organism Qualified Code(s): A41.9 - Sepsis, unspecified organism (2) Community acquired pneumonia SNOMED Code(s): 991762789 ICD Code: J18.9 - PNEUMONIA, UNSPECIFIED ORGANISM Status: Acute Qualifiers: Laterality: right Lung location: lower lobe of lung Qualified Code(s): J18.1 - Lobar pneumonia, unspecified organism (3) COPD (chronic obstructive pulmonary disease) SNOMED Code(s): 33910364 ICD Code: J44.9 - CHRONIC OBSTRUCTIVE PULMONARY DISEASE, UNSPECIFIED Status : Chronic Qualifiers: COPD type: emphysema Emphysema type: unspecified Qualified Code(s): J43.9 - Emphysema, unspecified (4) CAD (coronary artery disease) SNOMED Code(s): 77177092 ICD Code: I25.10 - ATHSCL HEART DISEASE OF [place] CORONARY ARTERY W/O ANG PCTRS Status: Chronic Qualifiers: Coronary Disease-Associated Artery/Lesion type: [place] artery [place] vs. transplanted heart: [place] heart Associated angina: without angina Qualified Code(s): I25.10 - Atherosclerotic heart disease of [place] coronary artery without angina pectoris (5) Acute respiratory failure with hypoxia SNOMED Code(s): 68431094 ICD Code: J96.01 - ACUTE RESPIRATORY FAILURE WITH HYPOXIA Status: Acute (6) Hypokalemia SNOMED Code(s): 15623107 ICD Code: E87.6 - HYPOKALEMIA Status: Acute (7) Elevated troponin SNOMED Code(s): 499436238 ICD Code: R74.8 - ABNORMAL LEVELS OF OTHER SERUM ENZYMES Status: Acute - Patient Summary/Data Hospital Course: Sidney presented to the emergency room on October 09 with shortness of breath and left-sided chest and neck pain. Workup in the emergency room revealed evidence for bilateral pneumonia and he developed evidence for sepsis while he was in the emergency room. Troponin level was also mildly elevated at the time of presentation. He was admitted to the hospital and started on broad-spectrum antibiotics because he had recently had a procedure done at a tertiary hospital. Cultures were obtained. He did receive some IV fluid resuscitation. The troponin leak was suspected to be caused by demand ischemia in the setting of hypoxia and pneumonia. He did have an angiogram performed only the day before which did not show disease that was amenable to intervention. history troponin level peaked at a low level and trended down early in the hospital stay.Over the next couple of days he showed slow but steady improvement. He did develop some wheezing on the day after admission and prednisone was initiated. Cultures were negative throughout the course of the hospital stay. With his ongoing clinical improvement we are able to de-escalate his antibiotics. He tolerated the discontinuation of cefepime and continued to be afebrile. We were able to wean him off of the supplemental oxygen day prior to discharge in the evening. He has been able to walk significant distances in the hospital without significant shortness of breath. On the day of discharge she was able to ambulate without any oxygen and did not desaturate. Cultures remained negative on the day of discharge. He will go home with 3 additional doses of levofloxacin and 2 more days of prednisone. He should follow-up in one week to make sure that he continues to get better. Also noted during the hospital stay was mild hypokalemia which responded well to replacement. He has been chest pain-free for several days. - Patient Instructions Diet: Heart Healthy Diet Activity: As Tolerated Driving: May Drive Today Showering/Bathing: May Shower Notify Provider of: Fever, Increased Pain, Nausea and/or Vomiting Other/Special Instructions: 1. You were in the hospital for management of bilateral pneumonia with sepsis syndrome. Your respiratory status has been improving with antibiotics and steroid therapy. I recommend 3 additional days of antibiotics with levofloxacin 750 mg to be taken once daily at suppertime. I also recommend 2 additional days of prednisone therapy which you should take once daily in the morning with breakfast. 2. Continue your usual home medications as previously prescribed. 3. Follow up with Dr. Guillermo in one week. 4. Please seek medical attention if you develop fever greater than 101, have sudden worsening of your shortness of breath or or if you develop chest pain or chest pressure. - Discharge Plan Prescriptions/Med Rec: Levofloxacin 750 mg PO QPM #3 tablet Prednisone [IJD: predniSONE] 20 mg PO WITHBREAKFAST #2 tablet Home Medications: Home Meds Tamsulosin [Flomax] 0.4 mg PO BEDTIME #30 cap.er 08/19/16 [Rx] atorvaSTATin [Lipitor] 20 mg PO BEDTIME #30 tablet 08/19/16 [Rx] Aspirin [Ecotrin] 81 mg PO DAILY 09/07/16 [History] Levalbuterol HCl [Xopenex] 1.25 mg NEB QID 03/01/17 [History] Metoprolol Tartrate [Lopressor] 12.5 mg PO BID 03/01/17 [History] Albuterol [Ventolin HFA] 2 puff INH Q4H PRN 10/09/17 [History] Isosorbide Mononitrate [Imdur] 15 mg PO DAILY 10/09/17 [History] Mometasone/Formoterol [Dulera 200-5 MCG] 2 puff INH BID 10/09/17 [History] Nitroglycerin 0.4 mg SL ASDIRECTED PRN 10/09/17 [History] Omeprazole 20 mg PO DAILY 10/09/17 [History] Ranitidine [Zantac] 75 mg PO BEDTIME PRN 10/09/17 [History] Umeclidinium [place] [Incruse Ellipta*] 62.5 mcg IH DAILY 10/09/17 [History] Levofloxacin 750 mg PO QPM #3 tablet 10/14/17 [Rx] Prednisone [IJD: predniSONE] 20 mg PO WITHBREAKFAST #2 tablet 10/14/17 [Rx] Patient Handouts: Levofloxacin tablets, Community-Acquired Pneumonia, Adult Referrals: Jc Guillermo Sr, MD [Primary Care Provider] - (f/u in 1 week - follow-up hospital stay for pneumonia) - Discharge Summary/Plan Comment DC Time >30 min.: No (25) - Patient Data Vitals - Most Recent: Last Vital Signs Temp 36.8 C 10/14/17 07:00 Pulse 66 10/14/17 08:01 Resp 16 10/14/17 07:00 BP 128/67 10/14/17 08:01 Pulse Ox 90 L 10/14/17 07:30 Weight - Most Recent: 88.995 kg I&O - Last 24 hours: Intake & Output 10/13/17 10/14/17 10/14/17 22:59 06:59 14:59 Intake Total 1320 920 Output Total 1400 1000 Balance -80 -1000 920 Med Orders - Current: Current Medications Acetaminophen (Tylenol) 650 mg PO Q4H PRN PRN Reason: Pain (Mild 1-3)/fever Last Admin: 10/14/17 03:17 Dose: 650 mg Albuterol (Proventil Neb Soln) 2.5 mg NEB Q4H PRN PRN Reason: Shortness Of Breath/wheezing Albuterol/Ipratropium (Duoneb 3.0-0.5 Mg/3 Ml) 3 ml NEB QIDRT [facility] Last Admin: 10/14/17 07:27 Dose: 3 ml Aspirin (Halfprin) 81 mg PO DAILY [facility] Last Admin: 10/14/17 08:01 Dose: 81 mg Atorvastatin Calcium (Lipitor) 20 mg PO BEDTIME [facility] Last Admin: 10/13/17 21:33 Dose: 20 mg Docusate Sodium (Colace) 100 mg PO BID PRN PRN Reason: Constipation Enoxaparin Sodium (Lovenox) 40 mg SUBCUT Q24H [facility] Last Admin: 10/13/17 16:03 Dose: 40 mg Levofloxacin (Levaquin) 500 mg PO Q24H [facility] Last Admin: 10/13/17 16:04 Dose: 500 mg Levofloxacin (Levaquin) 250 mg PO Q24H [facility] Last Admin: 10/13/17 16:04 Dose: 250 mg Magnesium Hydroxide (Milk Of Magnesia) 30 ml PO Q12H PRN PRN Reason: Constipation Metoprolol Tartrate (Lopressor) 12.5 mg PO BID [facility] Last Admin: 10/14/17 08:01 Dose: 12.5 mg Mometasone Furoate/Formoterol Fumar (Dulera 200-5 Mcg) 2 puff IH BIDRT [facility] Last Admin: 10/14/17 07:28 Dose: 2 puff Morphine Sulfate (Morphine) 2 mg IVPUSH Q30M PRN PRN Reason: Pain (severe 7-10) Nitroglycerin (Nitrostat) 0.4 mg SL Q5M PRN PRN Reason: Chest Pain Ondansetron HCl (Zofran) 4 mg IV Q4H PRN PRN Reason: Nausea/Vomiting Oxycodone HCl (Oxycodone) 5 mg PO Q4H PRN PRN Reason: Pain (moderate 4-6) Last Admin: 10/14/17 03:18 Dose: 5 mg Pantoprazole Sodium (Protonix) 40 mg PO ACBREAKFAST [facility] Last Admin: 10/14/17 07:59 Dose: 40 mg Incruse Ellipta 62. (5mcg Inhaler (Ptom)) 0 each INH DAILYRT [facility] Last Admin: 10/14/17 07:29 Dose: 1 each Polyethylene Glycol (Miralax) 17 gm PO DAILY PRN PRN Reason: Constipation Prednisone (Prednisone) 20 mg PO WITHBREAKFAST [facility] Last Admin: 10/14/17 08:01 Dose: 20 mg Ranitidine HCl (Zantac) 75 mg PO BEDTIME PRN PRN Reason: HEARTBURN Last Admin: 10/09/17 20:52 Dose: 75 mg Tamsulosin HCl (Flomax) 0.4 mg PO BEDTIME [facility] Last Admin: 10/13/17 21:33 Dose: 0.4 mg Discontinued Medications Albuterol (Ventolin Hfa) gm INH Q4H PRN PRN Reason: Shortness of Breath Enoxaparin Sodium (Lovenox) 40 mg SUBCUT DAILY [facility] Last Admin: 10/09/17 17:25 Dose: 40 mg Sodium Chloride (Normal Saline) 1,000 mls @ 500 mls/hr IV ASDIRECTED [facility] Last Admin: 10/09/17 14:04 Dose: 500 mls/hr Sodium Chloride (Normal Saline) 100 mls @ 4 mls/sec IV ASDIRECTED [facility] Stop: 10/09/17 23:00 Last Admin: 10/09/17 13:11 Dose: 4 mls/sec Cefepime HCl 2 gm/ Sodium (Chloride) 50 mls @ 100 mls/hr IV Q12H [facility] Last Admin: 10/10/17 04:25 Dose: 100 mls/hr Lactated Ringer's (Ringers, Lactated) 500 mls @ 500 mls/hr IV .BOLUS [facility] Stop: 10/09/17 20:30 Last Admin: 10/09/17 20:44 Dose: 500 mls/hr Lactated Ringer's (Ringers, Lactated) 1,000 mls @ 125 mls/hr IV ASDIRECTED [facility] Last Admin: 10/10/17 07:11 Dose: 125 mls/hr Levofloxacin/Dextrose 750 mg/ (Premix) 150 mls @ 100 mls/hr IV Q24H [facility] Last Admin: 10/12/17 16:26 Dose: 100 mls/hr Cefepime HCl 2 gm/ Sodium (Chloride) 100 mls @ 200 mls/hr IV Q12H [facility] Last Admin: 10/13/17 04:51 Dose: 200 mls/hr Lactated Ringer's (Ringers, Lactated) 1,000 mls @ 25 mls/hr IV ASDIRECTED [facility] Last Admin: 10/12/17 01:51 Dose: 60 mls/hr Iopamidol (Isovue-370 (76%)) 100 ml IV . DIRECTED [facility] Stop: 10/09/17 23:00 Last Admin: 10/09/17 13:11 Dose: 100 ml Levalbuterol HCl (Xopenex) 1.25 mg NEB QID [facility] Last Admin: 10/09/17 21:38 Dose: Not Given Methylprednisolone Sodium Succinate (Solu-Medrol) 40 mg IVPUSH Q8H [facility] Last Admin: 10/11/17 09:44 Dose: 40 mg Mometasone Furoate/Formoterol Fumar (Dulera 200-5 Mcg) 2 puff IH BID [facility] Last Admin: 10/09/17 21:30 Dose: 2 puff Potassium Chloride (Klor-Con M20) 40 meq PO ONETIME ONE Stop: 10/10/17 08:01 Last Admin: 10/10/17 08:12 Dose: 40 meq Prednisone (Prednisone) 20 mg PO BIDAC [facility] Last Admin: 10/13/17 08:26 Dose: 20 mg Sodium Chloride (Saline Flush) 10 ml FLUSH ASDIRECTED PRN PRN Reason: Keep Vein Open - Exam Quality Assessment: Denies: Supplemental Oxygen General: Reports: Alert, Oriented, Cooperative, No Acute Distress Lungs: Reports: Normal Respiratory Effort Cardiovascular: Reports: Regular Rate, Regular Rhythm Extremities: No Pedal Edema *Q Meaningful Use (DIS) - VTE *Q VTE Criteria *Q: - Stroke *Q Stroke Criteria *Q: - AMI *Q AMI Criteria *Q:
== END 2017-10-14 11:00 | disposition home or self-care (01) | DRG 871 ==
LOC: JP.ED 10:25 → JP.ICU 15:29 → JP.MS 10-10 10:28
PROVIDERS: ADMIT Hospitalist; ATTEND Internal Medicine
DX: A41.9 Sepsis, unspecified organism (principal); J18.1 Lobar pneumonia, unspecified organism; J96.01 Acute respiratory failure with hypoxia; R79.89 Other specified abnormal findings of blood chemistry; D50.9 Iron deficiency anemia, unspecified; E87.3 Alkalosis; J44.9 Chronic obstructive pulmonary disease, unspecified; I25.10 Atherosclerotic heart disease of native coronary artery without angina pectoris; R09.02 Hypoxemia; E78.00 Pure hypercholesterolemia, unspecified; I10 Essential (primary) hypertension; F32.9 Major depressive disorder, single episode, unspecified; E05.90 Thyrotoxicosis, unspecified without thyrotoxic crisis or storm; I25.2 Old myocardial infarction; E87.6 Hypokalemia; R74.8 Abnormal levels of other serum enzymes; Z95.1 Presence of aortocoronary bypass graft; Z79.899 Other long term (current) drug therapy; R29.810 Facial weakness; M62.81 Muscle weakness (generalized); Z88.0 Allergy status to penicillin; Z88.8 Allergy status to other drugs, medicaments and biological substances; Z87.891 Personal history of nicotine dependence
CPT/HCPCS: 36415; 36600; 71020 ×2; 71275; 80053; 82803; 83605; 83880; 84484; 85025; 87040 ×2; 87804 ×2; 93005; 96360; 99285; J7030; J7040; Q9967; 80048; 83735; 87070; 87205; 93010; 94640; 94640-76; 94664; A9270-GY; J0692; J1650; J1956; J2920; J7050; J7120; J7620

== ENCOUNTER 2018-01-10 15:32 | Inpatient (IN) | payer MEDICARE ==
[2018-01-10] MEDS ORDERED: Sodium Chloride 0.9% 10 ML Syringe FLUSH PRN (18:29)
[2018-01-10] MEDS ORDERED: Nitroglycerin 0.4 MG Tab.SL SL PRN (18:36)
[2018-01-10] MEDS ORDERED: Albuterol 8 GM Inhaler INH PRN (18:36)
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
[2018-01-10] MEDS: Metoprolol Tartrate 25 MG Tab PO SCH (20:35)
[2018-01-10] MEDS: atorvaSTATin 20 MG Tab PO SCH (20:35)
[2018-01-10] MEDS: Tamsulosin 0.4 MG Cap.ER PO SCH (20:35)
[2018-01-10] MEDS: Formoterol/Mometasone 200-5 MCG 8.8 GM Inhaler IH SCH (20:36)
[2018-01-10] MEDS: Levalbuterol HCl 1.25 MG/3 ML Neb NEB SCH (20:37)
[2018-01-11] MEDS ORDERED: Dextrose 5%-0.9% NaCl 1,000 ML IV SCH (07:15)
[2018-01-11] MEDS: Levalbuterol HCl 1.25 MG/3 ML Neb NEB SCH ×4 (07:21→20:29)
[2018-01-11] MEDS: Formoterol/Mometasone 200-5 MCG 8.8 GM Inhaler IH SCH ×2 (07:22→20:30)
[2018-01-11] MEDS ORDERED: Sodium Chloride 0.9% 80 ML IV SCH (07:45)
[2018-01-11] MEDS ORDERED: Iopamidol 612 MG/ML 150 ML Bottle IV PRN (07:45)
[2018-01-11] MEDS ORDERED: Sodium Chloride 0.9% 10 ML Syringe FLUSH PRN (07:45)
[2018-01-11] MEDS ORDERED: Iohexol 300 MG/ML 30 ML Bottle PO ONE (08:00)
[2018-01-11] MEDS ORDERED: Non-Formulary Medication 1 Each (Umeclidinium Bromide [Incruse Ellipta*] 62.5 MCG) IH SCH (09:00)
[2018-01-11] MEDS: Isosorbide Mononitrate 30 MG Tab.ER PO SCH (09:42)
[2018-01-11] MEDS: Aspirin 81 MG Tab.EC PO SCH (09:42)
[2018-01-11] MEDS: Metoprolol Tartrate 25 MG Tab PO SCH ×2 (09:43→20:30)
--- NOTE | 2018-01-11 10:47 | CT ---
CT ABDOMEN AND PELVIS WITH CONTRAST Clinical history: Abdominal pain, fever, leukocytosis Technique: Axial tomography images are obtained from the dome of the diaphragm to 4 the pelvis with i ntravenous and oral contrast enhancement. Coronal and sagittal images were reconstructed. Findings: There is a patchy right lower lobe pneumonic infiltrate. There are some chronic changes in the lung bases with some lower lobe bronchiectasis. This is greater on the right. There is a small ri ght-sided pleural effusion. The liver shows no mass or biliary dilatation. The spleen is normal size and shape. The gallbladder appears slightly contracted. There is no significant wall thickening identified on e current study. No stone is seen. There is no pericholecystic inflammatory change. The pancreas is f ree of mass or inflammatory change. There is a 1.4 x 1.2 cm right adrenal nodule. This is unchanged s nati 2016. There is a stable fusiform mid to distal abdominal aortic aneurysm extending into the [facility] t common iliac artery. Maximum dimension is 3.5 x 3.7 cm similar to prior study. Maximum right iliac artery dimension is 2 cm similar to prior study. There is some sigmoid diverticulosis without evidenc e of diverticulitis. There has been a previous right colectomy with an ileocolic anastomosis in the u pper abdomen. There is no evidence of obstruction. Scans into the pelvis show bilateral hydroceles. Impression: Right lower lobe pneumonic infiltrate with a small right pleural effusion. Stable right adrenal nodule. Stable fusiform mid to distal abdominal aortic aneurysm extending into the right common iliac artery Previous right colectomy Mild sigmoid diverticulosis without evidence of diverticulitis Slightly contracted gallbladder without obvious inflammatory change . Moderate bilateral hydroceles
[2018-01-11] MEDS: INCRUSE ELLIPTA 62.5MCG INHALER (PTOM) INH SCH (10:55)
[2018-01-11] MEDS: cefTRIAXone 1 GM in Sodium Chloride 0.9% 50 ML IV SCH (13:07)
[2018-01-11] MEDS: Levofloxacin/Dextrose 5%-Water 750 MG in Premix Bag 1 BAG IV SCH (14:02)
[2018-01-11] MEDS ORDERED: Levofloxacin/Dextrose 5%-Water 500 MG in Premix Bag 1 BAG IV SCH (14:30)
--- NOTE | 2018-01-11 18:39 | PCM.PN ---
- General Info Date of Service: 01/11/18 Subjective Update: Still has pain with a deep breath. - Review of Systems General: Reports: Weakness HEENT: Reports: No Symptoms Pulmonary: Reports: Shortness of Breath, Cough Cardiovascular: Reports: No Symptoms Gastrointestinal: Reports: No Symptoms Genitourinary: Reports: No Symptoms Musculoskeletal: Reports: No Symptoms Skin: Reports: No Symptoms Neurological: Reports: No Symptoms Psychiatric: Reports: No Symptoms - Patient Data Vitals - Most Recent: Last Vital Signs Temp 97.8 F 01/11/18 15:00 Pulse 71 01/11/18 15:00 Resp 18 01/11/18 15:00 BP 110/92 H 01/11/18 15:00 Pulse Ox 94 L 01/11/18 15:00 Weight - Most Recent: 196 lb I&O - Last 24 Hours: Intake & Output 01/11/18 01/11/18 01/11/18 06:59 14:59 22:59 Intake Total 430 Output Total 825 1000 Balance -825 430 -1000 Lab Results Last 24 Hours: Laboratory Results - last 24 hr 01/10/18 01/10/18 01/10/18 Range/Units 18:40 18:40 22:46 WBC 11.7 H (4.5-11.0) K/uL RBC 3.43 L (4.30-5.90) M/uL Hgb 11.8 L (12.0-15.0) g/dL Hct 34.9 L (40.0-54.0) % MCV 102 H (80-98) fL MCH 34 H (27-31) pg MCHC 34 (32-36) % Plt Count 233 (150-400) K/uL Neut % (Auto) (36-66) % Lymph % (Auto) (24-44) % Brooks % (Auto) (2-6) % Eos % (Auto) (2-4) % Baso % (Auto) (0-1) % Sodium 141 (140-148) mmol/L Potassium 3.9 (3.6-5.2) mmol/L Chloride 106 (100-108) mmol/L Carbon Dioxide 24 (21-32) mmol/L Anion Gap 10.7 (5.0-14.0) mmol/L BUN 11 (7-18) mg/dL Creatinine 1.2 (0.8-1.3) mg/dL Est Cr Clr Drug Dosing 58.39 mL/min Estimated GFR (MDRD) 59 L (>60) Glucose 99 (74-106) mg/dL Calcium 8.6 (8.5-10.1) mg/dL Total Bilirubin 0.9 (0.2-1.0) mg/dL AST 27 (15-37) U/L ALT 30 (12-78) U/L Alkaline Phosphatase 78 (46-116) U/L Total Protein 6.2 L (6.4-8.2) g/dL Albumin 3.1 L (3.4-5.0) g/dL Globulin 3.1 (2.3-3.5) g/dL Albumin/Globulin Ratio 1.0 L (1.2-2.2) Urine Color Yellow Urine Appearance Clear Urine pH 9.0 H (4.5-8.0) Ur Specific Greig 1.010 (1.008-1.030) Urine Protein Negative (NEGATIVE) mg/dL Urine Glucose (UA) Normal (NEGATIVE) mg/dL Urine Ketones Negative (NEGATIVE) mg/dL Urine Occult Blood Negative (NEGATIVE) Urine Nitrite Negative (NEGAITVE) Urine Bilirubin Negative (NEGATIVE) Urine Urobilinogen Normal (NORMAL) mg/dL Ur Leukocyte Esterase Negative (NEGATIVE) Urine RBC Not seen (0-5) Urine WBC Not seen (0-5) Ur Epithelial Cells Not seen Amorphous Sediment Few Urine Bacteria Not seen Urine Mucus Not seen 01/11/18 01/11/18 Range/Units 10:05 10:05 WBC 5.9 (4.5-11.0) K/uL RBC 3.42 L (4.30-5.90) M/uL Hgb 12.2 (12.0-15.0) g/dL Hct 34.5 L (40.0-54.0) % MCV 101 H (80-98) fL MCH 36 H (27-31) pg MCHC 35 (32-36) % Plt Count 166 (150-400) K/uL Neut % (Auto) 69 H (36-66) % Lymph % (Auto) 15 L (24-44) % Brooks % (Auto) 16 H (2-6) % Eos % (Auto) 1 L (2-4) % Baso % (Auto) 0 (0-1) % Sodium 138 L (140-148) mmol/L Potassium 3.5 L (3.6-5.2) mmol/L Chloride 105 (100-108) mmol/L Carbon Dioxide 23 (21-32) mmol/L Anion Gap 13.5 (5.0-14.0) mmol/L BUN 10 (7-18) mg/dL Creatinine 1.1 (0.8-1.3) mg/dL Est Cr Clr Drug Dosing 63.70 mL/min Estimated GFR (MDRD) > 60 (>60) Glucose 138 H (74-106) mg/dL Calcium 8.4 L (8.5-10.1) mg/dL Total Bilirubin (0.2-1.0) mg/dL AST (15-37) U/L ALT (12-78) U/L Alkaline Phosphatase (46-116) U/L Total Protein (6.4-8.2) g/dL Albumin (3.4-5.0) g/dL Globulin (2.3-3.5) g/dL Albumin/Globulin Ratio (1.2-2.2) Urine Color Urine Appearance Urine pH (4.5-8.0) Ur Specific Greig (1.008-1.030) Urine Protein (NEGATIVE) mg/dL Urine Glucose (UA) (NEGATIVE) mg/dL Urine Ketones (NEGATIVE) mg/dL Urine Occult Blood (NEGATIVE) Urine Nitrite (NEGAITVE) Urine Bilirubin (NEGATIVE) Urine Urobilinogen (NORMAL) mg/dL Ur Leukocyte Esterase (NEGATIVE) Urine RBC (0-5) Urine WBC (0-5) Ur Epithelial Cells Amorphous Sediment Urine Bacteria Urine Mucus Med Orders - Current: Current Medications Albuterol (Ventolin Hfa) 0 gm INH Q4H PRN PRN Reason: Shortness of Breath Aspirin (Halfprin) 81 mg PO DAILY [facility] Last Admin: 01/11/18 09:42 Dose: 81 mg Atorvastatin Calcium (Lipitor) 20 mg PO BEDTIME [facility] Last Admin: 01/10/18 20:35 Dose: 20 mg Dextrose/Sodium Chloride (Dextrose 5%-Normal Saline) 1,000 mls @ 125 mls/hr IV ASDIRECTED [facility] Last Admin: 01/11/18 07:30 Dose: 125 mls/hr Ceftriaxone Sodium 1 gm/ (Sodium Chloride) 50 mls @ 100 mls/hr IV Q24H [facility] Last Admin: 01/11/18 13:07 Dose: 100 mls/hr Levofloxacin/Dextrose 750 mg/ (Premix) 150 mls @ 150 mls/hr IV Q24H [facility] Last Admin: 01/11/18 14:02 Dose: 150 mls/hr Isosorbide Mononitrate (Imdur) 15 mg PO DAILY [facility] Last Admin: 01/11/18 09:42 Dose: 15 mg Levalbuterol HCl (Xopenex) 1.25 mg NEB QIDRT [facility] Last Admin: 01/11/18 14:34 Dose: 1.25 mg Metoprolol Tartrate (Lopressor) 25 mg PO BID [facility] Last Admin: 01/11/18 09:43 Dose: 25 mg Mometasone Furoate/Formoterol Fumar (Dulera 200-5 Mcg) 2 puff IH BIDRT [facility] Last Admin: 01/11/18 07:22 Dose: 2 puff Nitroglycerin (Nitrostat) 0.4 mg SL ASDIRECTED PRN PRN Reason: Chest Pain Incruse Ellipta 62. (5mcg Inhaler (Ptom)) 0 each INH DAILYRT [facility] Last Admin: 01/11/18 10:55 Dose: 1 each Ranitidine HCl (Zantac) 75 mg PO BEDTIME PRN PRN Reason: HEARTBURN Last Admin: 01/10/18 20:36 Dose: 75 mg Sodium Chloride (Saline Flush) 10 ml FLUSH ASDIRECTED PRN PRN Reason: Keep Vein Open Tamsulosin HCl (Flomax) 0.4 mg PO BEDTIME [facility] Last Admin: 01/10/18 20:35 Dose: 0.4 mg Discontinued Medications Sodium Chloride (Normal Saline) 80 mls @ 3.5 mls/sec IV ASDIRECTED [facility] Stop: 01/11/18 23:00 Last Admin: 01/11/18 08:44 Dose: 3.5 mls/sec Iohexol (Omnipaque) 20 ml PO ONETIME ONE Stop: 01/11/18 08:01 Last Admin: 01/11/18 07:37 Dose: 20 ml Iopamidol (Isovue-300 (61%)) 134 ml IV . DIRECTED PRN PRN Reason: RADIOLOGY EXAM Stop: 01/12/18 07:46 Last Admin: 01/11/18 08:45 Dose: 144 ml Sodium Chloride (Saline Flush) 10 ml FLUSH ONETIME PRN PRN Reason: per radiology protocol Stop: 01/11/18 23:00 Last Admin: 01/11/18 08:45 Dose: 10 ml - Exam General: Alert, Oriented HEENT: Pupils Equal, Pupils Reactive, EOMI, Mucous Membr. Moist/[place] Neck: Supple Lungs: Clear to Auscultation, Normal Respiratory Effort Cardiovascular: Regular Rate, Regular Rhythm GI/Abdominal Exam: Normal Bowel Sounds, Soft, No Distention, No Abnormal Bruit, No Mass, Pelvis Stable Peripheral Pulses: 1+: Radial (L), Radial (R) Psy/Mental Status: Alert, Normal Affect, Normal Mood - Problem List Review Problem List Initiated/Reviewed/Updated: Yes - My Orders Last 24 Hours: My Active Orders 01/10/18 18:29 Patient Status [ADT] Routine Height and Weight [RC] 0500 May Shower [RC] ASDIRECTED Oxygen Therapy [RC] PRN Up to Chair [RC] QID VTE/DVT Education [RC] Per Unit Routine Vital Signs [RC] Q4H Sodium Chloride 0.9% [Saline Flush] 10 ml FLUSH ASDIRECTED PRN Saline Lock Insert [OM.PC] Routine Resuscitation Status Routine 01/10/18 18:33 Cardiac Monitoring [RC] .As Directed Intake and Output [RC] QSHIFT 01/10/18 18:36 Albuterol [Ventolin HFA] 0 gm INH Q4H PRN Nitroglycerin [Nitrostat] 0.4 mg SL ASDIRECTED PRN 01/10/18 18:40 CULTURE BLOOD [BC] Urgent 01/10/18 18:43 EKG 12 Lead [EK] Routine 01/10/18 18:50 CULTURE BLOOD [BC] Urgent Blood Culture x2 Reflex Set [OM.PC] Urgent 01/10/18 19:00 Ranitidine [Zantac] 75 mg PO BEDTIME PRN 01/10/18 21:00 Levalbuterol HCl [Xopenex] 1.25 mg NEB QIDRT Metoprolol Tartrate [Lopressor] 25 mg PO BID Mometasone/Formoterol [Dulera 200-5 MCG] 2 puff IH BIDRT Tamsulosin [Flomax] 0.4 mg PO BEDTIME atorvaSTATin [Lipitor] 20 mg PO BEDTIME 01/10/18 21:13 SCD [Sequential Compression Device] [OM.PC] Routine 01/11/18 07:15 Dextrose 5%-0.9% NaCl [Dextrose 5%-Normal Saline] 1,000 ml IV ASDIRECTED 01/11/18 09:00 Aspirin [Halfprin] 81 mg PO DAILY Isosorbide Mononitrate [Imdur] 15 mg PO DAILY Patient's Own Medication [Ptom] 0 each INH DAILYRT 01/11/18 12:40 CULTURE RESPIRATORY + SMEAR [RM] Routine 01/11/18 13:00 Levofloxacin/Dextrose 5%-Water [Levaquin in D5W 750 MG/150 ML] 750 mg Premix Bag 1 bag IV Q24H 01/11/18 14:00 cefTRIAXone [Rocephin] 1 gm Sodium Chloride 0.9% [Normal Saline] 50 ml IV Q24H 01/11/18 Breakfast Regular Diet [DIET] 01/12/18 07:00 Cholescintigraphy w Pharm Int [NM] Routine - Plan Plan:: Assessment/Plan: #1. Right lower Lobe pneumonia: Ct of the abd was unremarkable but the CT showed a right lower lobe pneumonia. This explains his fever and pain on the right side worse with a cough. A CT of the chest was recently done but this developed in the interim. I have started him on Rocephin and Levofloxacin. #2. Abdominal pain: CT Scan pending tomorrow #3. ASHD: Stable. #4. Possible Sepsis: Blood cultures pending and blood work pending. #5. COPD: #5. Thyroid dysfunction on Meds.\ #6. GERD #7. Gall bladder dysfunction:
[2018-01-11] MEDS: atorvaSTATin 20 MG Tab PO SCH (20:29)
[2018-01-11] MEDS: Tamsulosin 0.4 MG Cap.ER PO SCH (20:29)
[2018-01-12] MEDS: Levalbuterol HCl 1.25 MG/3 ML Neb NEB SCH ×4 (07:25→20:50)
[2018-01-12] MEDS: Formoterol/Mometasone 200-5 MCG 8.8 GM Inhaler IH SCH ×2 (07:27→20:48)
[2018-01-12] MEDS: INCRUSE ELLIPTA 62.5MCG INHALER (PTOM) INH SCH (07:28)
[2018-01-12] MEDS: Isosorbide Mononitrate 30 MG Tab.ER PO SCH (10:29)
[2018-01-12] MEDS: Aspirin 81 MG Tab.EC PO SCH (10:29)
[2018-01-12] MEDS: Metoprolol Tartrate 25 MG Tab PO SCH ×2 (10:30→20:50)
--- NOTE | 2018-01-12 11:58 | NM ---
HEPATOBILIARY SCAN WITH EJECTION FRACTION: Clinical History: Right upper quadrant pain Multiple images of the hepatobiliary system were obtained following the IV injection of 5.32 mCi of t echnetium 99m Choletec. 60 minutes into the study the patient was given 8 ounces of intra or orally. Quantitative analysis of the gallbladder was performed. Findings: There is a normal pattern of hepatic uptake. Biliary activity is seen at 10 minutes.Gallbla dder activity is seen at 15minutes. Intestinal activity is seen at 30minutes. Following fatty meal, t kapil gallbladder ejection fraction was calculated at 17%. Impression:Normal appearance of the biliary tree and intestine The gallbladder ejection fraction wasabnormally low at 17%
[2018-01-12] MEDS: Levofloxacin/Dextrose 5%-Water 750 MG in Premix Bag 1 BAG IV SCH (14:57)
[2018-01-12] MEDS: cefTRIAXone 1 GM in Sodium Chloride 0.9% 50 ML IV SCH (16:35)
--- NOTE | 2018-01-12 17:30 | PCM.PN ---
- General Info Date of Service: 01/12/18 Functional Status: Reports: Pain Controlled - Review of Systems General: Reports: Weakness Pulmonary: Reports: Shortness of Breath, Cough Cardiovascular: Reports: No Symptoms Gastrointestinal: Reports: No Symptoms Genitourinary: Reports: No Symptoms Musculoskeletal: Reports: No Symptoms Skin: Reports: No Symptoms Neurological: Reports: No Symptoms Psychiatric: Reports: No Symptoms - Patient Data Vitals - Most Recent: Last Vital Signs Temp 98.2 F 01/12/18 15:03 Pulse 63 01/12/18 15:03 Resp 16 01/12/18 15:03 BP 117/62 01/12/18 15:03 Pulse Ox 95 01/12/18 15:03 Weight - Most Recent: 190 lb 12.8 oz I&O - Last 24 Hours: Intake & Output 01/12/18 01/12/18 01/12/18 06:59 14:59 22:59 Intake Total 240 150 Output Total 675 Balance -435 150 [place]ion Results Last 24 Hours: Microbiology 01/11/18 20:38 Gram Stain - Final Sputum - Expectorated 01/10/18 18:50 Aerobic Blood Culture - Preliminary Blood - Arm, Left NO GROWTH AFTER 1 DAY Anaerobic Blood Culture - Preliminary NO GROWTH AFTER 1 DAY 01/10/18 18:40 Aerobic Blood Culture - Preliminary Blood - Arm, Left NO GROWTH AFTER 1 DAY Anaerobic Blood Culture - Preliminary NO GROWTH AFTER 1 DAY Med Orders - Current: Current Medications Albuterol (Ventolin Hfa) 0 gm INH Q4H PRN PRN Reason: Shortness of Breath Aspirin (Halfprin) 81 mg PO DAILY [facility] Last Admin: 01/12/18 10:29 Dose: 81 mg Atorvastatin Calcium (Lipitor) 20 mg PO BEDTIME [facility] Last Admin: 01/11/18 20:29 Dose: 20 mg Dextrose/Sodium Chloride (Dextrose 5%-Normal Saline) 1,000 mls @ 125 mls/hr IV ASDIRECTED [facility] Last Admin: 01/11/18 07:30 Dose: 125 mls/hr Ceftriaxone Sodium 1 gm/ (Sodium Chloride) 50 mls @ 100 mls/hr IV Q24H [facility] Last Admin: 01/12/18 16:35 Dose: 100 mls/hr Levofloxacin/Dextrose 750 mg/ (Premix) 150 mls @ 150 mls/hr IV Q24H [facility] Last Admin: 01/12/18 14:57 Dose: 150 mls/hr Isosorbide Mononitrate (Imdur) 15 mg PO DAILY [facility] Last Admin: 01/12/18 10:29 Dose: 15 mg Levalbuterol HCl (Xopenex) 1.25 mg NEB QIDRT [facility] Last Admin: 01/12/18 14:37 Dose: 1.25 mg Metoprolol Tartrate (Lopressor) 25 mg PO BID [facility] Last Admin: 01/12/18 10:30 Dose: 25 mg Mometasone Furoate/Formoterol Fumar (Dulera 200-5 Mcg) 2 puff IH BIDRT [facility] Last Admin: 01/12/18 07:27 Dose: 2 puff Nitroglycerin (Nitrostat) 0.4 mg SL ASDIRECTED PRN PRN Reason: Chest Pain Incruse Ellipta 62. (5mcg Inhaler (Ptom)) 0 each INH DAILYRT [facility] Last Admin: 01/12/18 07:28 Dose: 1 each Ranitidine HCl (Zantac) 75 mg PO BEDTIME PRN PRN Reason: HEARTBURN Last Admin: 01/12/18 10:56 Dose: 75 mg Sodium Chloride (Saline Flush) 10 ml FLUSH ASDIRECTED PRN PRN Reason: Keep Vein Open Tamsulosin HCl (Flomax) 0.4 mg PO BEDTIME [facility] Last Admin: 01/11/18 20:29 Dose: 0.4 mg Discontinued Medications Sodium Chloride (Normal Saline) 80 mls @ 3.5 mls/sec IV ASDIRECTED [facility] Stop: 01/11/18 23:00 Last Admin: 01/11/18 08:44 Dose: 3.5 mls/sec Iohexol (Omnipaque) 20 ml PO ONETIME ONE Stop: 01/11/18 08:01 Last Admin: 01/11/18 07:37 Dose: 20 ml Iopamidol (Isovue-300 (61%)) 134 ml IV . DIRECTED PRN PRN Reason: RADIOLOGY EXAM Stop: 01/12/18 07:46 Last Admin: 01/11/18 08:45 Dose: 144 ml Sodium Chloride (Saline Flush) 10 ml FLUSH ONETIME PRN PRN Reason: per radiology protocol Stop: 01/11/18 23:00 Last Admin: 01/11/18 08:45 Dose: 10 ml - Exam General: Alert, Oriented HEENT: Pupils Equal, Pupils Reactive, EOMI, Mucous Membr. Moist/[place] Neck: Supple Lungs: Clear to Auscultation, Normal Respiratory Effort Cardiovascular: Regular Rate, Regular Rhythm GI/Abdominal Exam: Normal Bowel Sounds, Soft, Non-Tender, No Organomegaly, No Distention, No Abnormal Bruit, No Mass, Pelvis Stable Back Exam: Normal Inspection, Full Range of Motion Extremities: Normal Inspection, Normal Range of Motion, Non-Tender, No Pedal Edema, Normal Capillary Refill Peripheral Pulses: 1+: Radial (L), Radial (R) Neurological: No New Focal Deficit Psy/Mental Status: Alert, Normal Affect, Normal Mood - Problem List Review Problem List Initiated/Reviewed/Updated: Yes - My Orders Last 24 Hours: My Active Orders 01/11/18 20:38 CULTURE RESPIRATORY + SMEAR [RM] Routine 01/12/18 17:30 Potassium Chloride [Klor-Con M20] 20 meq PO DAILY 01/12/18 Breakfast NPO After Midnight [Nothing per Oral After Midnight Diet] [DIET] - Plan Plan:: Assessment/Plan: #1. Right lower Lobe pneumonia: Ct of the abd was unremarkable but the CT showed a right lower lobe pneumonia. This explains his fever and pain on the right side worse with a cough. A CT of the chest was recently done but this developed in the interim. I will continue with Rocephin and Levofloxacin. #2. Abdominal pain 2o to Cholecystitis: Hida scan showed ejection scan of 17% . He is not stable for surgery presently with the pneumonia. #3. ASHD: Stable. #4. Possible Sepsis: Blood cultures pending and blood work pending. #5. COPD: #5. Thyroid dysfunction on Meds.\ #6. GERD
[2018-01-12] MEDS: Potassium Chloride 20 MEQ Tab.ER PO SCH (18:38)
[2018-01-12] MEDS: Tamsulosin 0.4 MG Cap.ER PO SCH (20:49)
[2018-01-12] MEDS: atorvaSTATin 20 MG Tab PO SCH (20:49)
[2018-01-13] MEDS: Levalbuterol HCl 1.25 MG/3 ML Neb NEB SCH (07:26)
[2018-01-13] MEDS: INCRUSE ELLIPTA 62.5MCG INHALER (PTOM) INH SCH (07:26)
[2018-01-13] MEDS: Formoterol/Mometasone 200-5 MCG 8.8 GM Inhaler IH SCH (07:26)
[2018-01-13 07:55] VITALS: BP 119/62
[2018-01-13] MEDS: Isosorbide Mononitrate 30 MG Tab.ER PO SCH (08:03)
[2018-01-13] MEDS: Aspirin 81 MG Tab.EC PO SCH (08:03)
[2018-01-13] MEDS: Metoprolol Tartrate 25 MG Tab PO SCH (08:04)
--- NOTE | 2018-01-13 08:52 | PCM.PN ---
- General Info Date of Service: 01/13/18 Admission Dx/Problem (Free Text): He is feeling better today with minimual pain in the abd. Functional Status: Reports: Pain Controlled - Review of Systems General: Reports: Weakness HEENT: Reports: No Symptoms Pulmonary: Reports: Shortness of Breath, Cough Cardiovascular: Reports: No Symptoms Gastrointestinal: Reports: Abdominal Pain, Other Genitourinary: Reports: No Symptoms Musculoskeletal: Reports: No Symptoms Skin: Reports: No Symptoms Neurological: Reports: No Symptoms Psychiatric: Reports: No Symptoms - Patient Data Vitals - Most Recent: Last Vital Signs Temp 97.5 F 01/13/18 07:52 Pulse 65 01/13/18 08:04 Resp 16 01/13/18 07:52 BP 119/62 01/13/18 08:04 Pulse Ox 92 L 01/13/18 07:52 Weight - Most Recent: 190 lb I&O - Last 24 Hours: Intake & Output 01/12/18 01/13/18 01/13/18 22:59 06:59 14:59 Intake Total 390 Output Total 300 850 Balance 90 -850 Darrion Results Last 24 Hours: Microbiology 01/11/18 20:38 Gram Stain - Final Sputum - Expectorated Respiratory Culture - Preliminary NORMAL RESPIRATORY SHABBIR 1 DAY 01/10/18 18:50 Aerobic Blood Culture - Preliminary Blood - Arm, Left NO GROWTH AFTER 2 DAYS Anaerobic Blood Culture - Preliminary NO GROWTH AFTER 2 DAYS 01/10/18 18:40 Aerobic Blood Culture - Preliminary Blood - Arm, Left NO GROWTH AFTER 2 DAYS Anaerobic Blood Culture - Preliminary NO GROWTH AFTER 2 DAYS Med Orders - Current: Current Medications Albuterol (Ventolin Hfa) 0 gm INH Q4H PRN PRN Reason: Shortness of Breath Aspirin (Halfprin) 81 mg PO DAILY [facility] Last Admin: 01/13/18 08:03 Dose: 81 mg Atorvastatin Calcium (Lipitor) 20 mg PO BEDTIME [facility] Last Admin: 01/12/18 20:49 Dose: 20 mg Ceftriaxone Sodium 1 gm/ (Sodium Chloride) 50 mls @ 100 mls/hr IV Q24H [facility] Last Admin: 01/12/18 16:35 Dose: 100 mls/hr Levofloxacin/Dextrose 750 mg/ (Premix) 150 mls @ 150 mls/hr IV Q24H [facility] Last Admin: 01/12/18 14:57 Dose: 150 mls/hr Isosorbide Mononitrate (Imdur) 15 mg PO DAILY [facility] Last Admin: 01/13/18 08:03 Dose: 15 mg Levalbuterol HCl (Xopenex) 1.25 mg NEB QIDRT [facility] Last Admin: 01/13/18 07:26 Dose: 1.25 mg Metoprolol Tartrate (Lopressor) 25 mg PO BID [facility] Last Admin: 01/13/18 08:04 Dose: 25 mg Mometasone Furoate/Formoterol Fumar (Dulera 200-5 Mcg) 2 puff IH BIDRT [facility] Last Admin: 01/13/18 07:26 Dose: 2 puff Nitroglycerin (Nitrostat) 0.4 mg SL ASDIRECTED PRN PRN Reason: Chest Pain Incruse Ellipta 62. (5mcg Inhaler (Ptom)) 0 each INH DAILYRT [facility] Last Admin: 01/13/18 07:26 Dose: 1 each Potassium Chloride (Klor-Con M20) 20 meq PO DAILY [facility] Last Admin: 01/12/18 18:38 Dose: 20 meq Ranitidine HCl (Zantac) 75 mg PO BEDTIME PRN PRN Reason: HEARTBURN Last Admin: 01/12/18 20:49 Dose: 75 mg Sodium Chloride (Saline Flush) 10 ml FLUSH ASDIRECTED PRN PRN Reason: Keep Vein Open Tamsulosin HCl (Flomax) 0.4 mg PO BEDTIME [facility] Last Admin: 01/12/18 20:49 Dose: 0.4 mg Discontinued Medications Dextrose/Sodium Chloride (Dextrose 5%-Normal Saline) 1,000 mls @ 125 mls/hr IV ASDIRECTED [facility] Last Admin: 01/11/18 07:30 Dose: 125 mls/hr Sodium Chloride (Normal Saline) 80 mls @ 3.5 mls/sec IV ASDIRECTED [facility] Stop: 01/11/18 23:00 Last Admin: 01/11/18 08:44 Dose: 3.5 mls/sec Iohexol (Omnipaque) 20 ml PO ONETIME ONE Stop: 01/11/18 08:01 Last Admin: 01/11/18 07:37 Dose: 20 ml Iopamidol (Isovue-300 (61%)) 134 ml IV . DIRECTED PRN PRN Reason: RADIOLOGY EXAM Stop: 01/12/18 07:46 Last Admin: 01/11/18 08:45 Dose: 144 ml Sodium Chloride (Saline Flush) 10 ml FLUSH ONETIME PRN PRN Reason: per radiology protocol Stop: 01/11/18 23:00 Last Admin: 01/11/18 08:45 Dose: 10 ml - Exam General: Alert, Oriented HEENT: Pupils Equal, Pupils Reactive, EOMI, Mucous Membr. Moist/[place] Neck: Supple Lungs: Other (rales right lower lung field) GI/Abdominal Exam: Other (Pain upper right quad) Back Exam: Normal Inspection, Full Range of Motion Extremities: Normal Inspection, Normal Range of Motion, Non-Tender, No Pedal Edema, Normal Capillary Refill Peripheral Pulses: 1+: Radial (L), Radial (R) Skin: Warm, Dry, Intact Neurological: No New Focal Deficit Psy/Mental Status: Alert, Normal Affect, Normal Mood - Problem List Review Problem List Initiated/Reviewed/Updated: Yes - My Orders Last 24 Hours: My Active Orders 01/12/18 17:30 Potassium Chloride [Klor-Con M20] 20 meq PO DAILY 01/12/18 Breakfast NPO After Midnight [Nothing per Oral After Midnight Diet] [DIET] 01/13/18 08:20 Ready for Discharge [RC] PER UNIT ROUTINE - Plan Plan:: Assessment/Plan: #1. Right lower Lobe pneumonia: resolving with meds. Plan home today on meds. Zithromax and Levaquin #2. Abdominal pain: Cholecystitis surgery in 2-3 weeks after pneumonia cleared #3. ASHD: Stable. #4. Possible Sepsis: Blood cultures neg at day 2 #5. COPD: continue meds #5. Thyroid dysfunction on Meds. Will continue meds. #6. GERD. continue meds #7. Gall bladder dysfunction:
--- NOTE | 2018-01-13 08:57 | PCM.DCSUM1 ---
Discharge Summary - Hospital Course Brief History: Admitted with a fever of 102 at home and feeling week with a minimual cough which has been chronic. He had a history of expected GB problem and an Hida scan was pending. When he developed a fever and weakness with a cough an admission was advised. - Discharge Data Discharge Date: 01/13/18 Discharge Disposition: Home, Self-Care 01 Condition: Good - Patient Summary/Data Hospital Course: CT of the abd was done which showed pneumonia and treatment was begun. A Hida scan was done which showed an ejection fraction of 17%. He was given Rocephin and Levaquin and the fever resolved and he begun to feel better. He will come back for GB surgery once the pneumonia has cleared. His K+ was low and meds were given. - Patient Instructions Diet: Heart Healthy Diet Activity: As Tolerated - Discharge Plan Prescriptions/Med Rec: Azithromycin [Zithromax] 250 mg PO DAILY 6 Days #6 tab Levofloxacin [Levaquin] 500 mg PO Q48H 3 Days #6 tab Home Medications: Home Meds Tamsulosin [Flomax] 0.4 mg PO BEDTIME #30 cap.er 08/19/16 [Rx] atorvaSTATin [Lipitor] 20 mg PO BEDTIME #30 tablet 08/19/16 [Rx] Aspirin [Ecotrin] 81 mg PO DAILY 09/07/16 [History] Levalbuterol HCl [Xopenex] 1.25 mg NEB QID 03/01/17 [History] Metoprolol Tartrate [Lopressor] 25 mg PO BID 03/01/17 [History] Albuterol [Ventolin HFA] 2 puff INH Q4H PRN 10/09/17 [History] Isosorbide Mononitrate [Imdur] 15 mg PO DAILY 10/09/17 [History] Mometasone/Formoterol [Dulera 200-5 MCG] 2 puff INH BID 10/09/17 [History] Nitroglycerin 0.4 mg SL ASDIRECTED PRN 10/09/17 [History] Omeprazole 20 mg PO DAILY 10/09/17 [History] Ranitidine [Zantac] 75 mg PO BEDTIME PRN 10/09/17 [History] Umeclidinium [place] [Incruse Ellipta*] 62.5 mcg IH DAILY 10/09/17 [History] Azithromycin [Zithromax] 250 mg PO DAILY 6 Days #6 tab 01/13/18 [Rx] Levofloxacin [Levaquin] 500 mg PO Q48H 3 Days #6 tab 01/13/18 [Rx] Potassium Chloride [Klor-Con M20] 20 meq PO DAILY tab.er 01/13/18 [Rx] Patient Handouts: Cholelithiasis, Laparoscopic Cholecystectomy, Care After, [id number], Community-Acquired Pneumonia, Adult - Discharge Summary/Plan Comment DC Time >30 min.: Yes Discharge Summary/Plan Comment: Assessment/Plan: #1. Right lower Lobe pneumonia: resolving with meds. Plan home today on meds. Zithromax and Levaquin #2. Abdominal pain: Cholecystitis surgery in 2-3 weeks after pneumonia cleared #3. ASHD: Stable. #4. Possible Sepsis: Blood cultures neg at day 2 #5. COPD: continue meds #5. Thyroid dysfunction on Meds. Will continue meds. #6. GERD. continue meds #7. Gall bladder dysfunction: - General Info Functional Status: Reports: Pain Controlled - Review of Systems General: Reports: Weakness HEENT: Reports: No Symptoms Pulmonary: Reports: Shortness of Breath, Cough Cardiovascular: Reports: No Symptoms Gastrointestinal: Reports: No Symptoms Genitourinary: Reports: No Symptoms Musculoskeletal: Reports: No Symptoms Skin: Reports: No Symptoms Neurological: Reports: No Symptoms Psychiatric: Reports: No Symptoms - Patient Data Vitals - Most Recent: Last Vital Signs Temp 97.5 F 01/13/18 07:52 Pulse 65 01/13/18 08:04 Resp 16 01/13/18 07:52 BP 119/62 01/13/18 08:04 Pulse Ox 92 L 01/13/18 07:52 Weight - Most Recent: 190 lb I&O - Last 24 hours: Intake & Output 01/12/18 01/13/18 01/13/18 22:59 06:59 14:59 Intake Total 390 Output Total 300 850 Balance 90 -850 DELIO Results - Last 24 hrs: Microbiology 01/11/18 20:38 Gram Stain - Final Sputum - Expectorated Respiratory Culture - Preliminary NORMAL RESPIRATORY SHABBIR 1 DAY 01/10/18 18:50 Aerobic Blood Culture - Preliminary Blood - Arm, Left NO GROWTH AFTER 2 DAYS Anaerobic Blood Culture - Preliminary NO GROWTH AFTER 2 DAYS 01/10/18 18:40 Aerobic Blood Culture - Preliminary Blood - Arm, Left NO GROWTH AFTER 2 DAYS Anaerobic Blood Culture - Preliminary NO GROWTH AFTER 2 DAYS Med Orders - Current: Current Medications Albuterol (Ventolin Hfa) 0 gm INH Q4H PRN PRN Reason: Shortness of Breath Aspirin (Halfprin) 81 mg PO DAILY [facility] Last Admin: 01/13/18 08:03 Dose: 81 mg Atorvastatin Calcium (Lipitor) 20 mg PO BEDTIME [facility] Last Admin: 01/12/18 20:49 Dose: 20 mg Ceftriaxone Sodium 1 gm/ (Sodium Chloride) 50 mls @ 100 mls/hr IV Q24H [facility] Last Admin: 01/12/18 16:35 Dose: 100 mls/hr Levofloxacin/Dextrose 750 mg/ (Premix) 150 mls @ 150 mls/hr IV Q24H [facility] Last Admin: 01/12/18 14:57 Dose: 150 mls/hr Isosorbide Mononitrate (Imdur) 15 mg PO DAILY [facility] Last Admin: 01/13/18 08:03 Dose: 15 mg Levalbuterol HCl (Xopenex) 1.25 mg NEB QIDRT [facility] Last Admin: 01/13/18 07:26 Dose: 1.25 mg Metoprolol Tartrate (Lopressor) 25 mg PO BID [facility] Last Admin: 01/13/18 08:04 Dose: 25 mg Mometasone Furoate/Formoterol Fumar (Dulera 200-5 Mcg) 2 puff IH BIDRT [facility] Last Admin: 01/13/18 07:26 Dose: 2 puff Nitroglycerin (Nitrostat) 0.4 mg SL ASDIRECTED PRN PRN Reason: Chest Pain Incruse Ellipta 62. (5mcg Inhaler (Ptom)) 0 each INH DAILYRT [facility] Last Admin: 01/13/18 07:26 Dose: 1 each Potassium Chloride (Klor-Con M20) 20 meq PO DAILY [facility] Last Admin: 01/12/18 18:38 Dose: 20 meq Ranitidine HCl (Zantac) 75 mg PO BEDTIME PRN PRN Reason: HEARTBURN Last Admin: 01/12/18 20:49 Dose: 75 mg Sodium Chloride (Saline Flush) 10 ml FLUSH ASDIRECTED PRN PRN Reason: Keep Vein Open Tamsulosin HCl (Flomax) 0.4 mg PO BEDTIME [facility] Last Admin: 01/12/18 20:49 Dose: 0.4 mg Discontinued Medications Dextrose/Sodium Chloride (Dextrose 5%-Normal Saline) 1,000 mls @ 125 mls/hr IV ASDIRECTED [facility] Last Admin: 01/11/18 07:30 Dose: 125 mls/hr Sodium Chloride (Normal Saline) 80 mls @ 3.5 mls/sec IV ASDIRECTED [facility] Stop: 01/11/18 23:00 Last Admin: 01/11/18 08:44 Dose: 3.5 mls/sec Iohexol (Omnipaque) 20 ml PO ONETIME ONE Stop: 01/11/18 08:01 Last Admin: 01/11/18 07:37 Dose: 20 ml Iopamidol (Isovue-300 (61%)) 134 ml IV . DIRECTED PRN PRN Reason: RADIOLOGY EXAM Stop: 01/12/18 07:46 Last Admin: 01/11/18 08:45 Dose: 144 ml Sodium Chloride (Saline Flush) 10 ml FLUSH ONETIME PRN PRN Reason: per radiology protocol Stop: 01/11/18 23:00 Last Admin: 01/11/18 08:45 Dose: 10 ml - Exam General: Reports: Alert, Oriented HEENT: Reports: Pupils Equal, Pupils Reactive, EOMI, Mucous Membr. Moist/[place] Neck: Reports: Supple Lungs: Reports: Rales Cardiovascular: Reports: Regular Rate, Regular Rhythm GI/Abdominal Exam: Normal Bowel Sounds, Soft, No Organomegaly, No Distention, No Abnormal Bruit, No Mass, Pelvis Stable, Other (Pain upper right quad.) Back Exam: Reports: Normal Inspection, Full Range of Motion Extremities: Normal Inspection, Normal Range of Motion, Non-Tender, No Pedal Edema, Normal Capillary Refill Neurological: Reports: No New Focal Deficit Psy/Mental Status: Reports: Alert, Normal Affect, Normal Mood *Q Meaningful Use (DIS) - VTE *Q VTE Criteria *Q: - Stroke *Q Stroke Criteria *Q: - AMI *Q AMI Criteria *Q:
[2018-01-13] MEDS: Potassium Chloride 20 MEQ Tab.ER PO SCH (09:11)
== END 2018-01-13 09:42 | disposition home or self-care (01) | DRG 195 ==
LOC: JP.MS 15:32
PROVIDERS: ADMIT Internal Medicine; ATTEND Internal Medicine
DX: J18.1 Lobar pneumonia, unspecified organism (principal); I10 Essential (primary) hypertension; I25.10 Atherosclerotic heart disease of native coronary artery without angina pectoris; E78.00 Pure hypercholesterolemia, unspecified; J44.9 Chronic obstructive pulmonary disease, unspecified; K81.9 Cholecystitis, unspecified; E87.6 Hypokalemia; E05.90 Thyrotoxicosis, unspecified without thyrotoxic crisis or storm; Z87.891 Personal history of nicotine dependence; K21.9 Gastro-esophageal reflux disease without esophagitis; Z95.1 Presence of aortocoronary bypass graft; H54.7 Unspecified visual loss; N42.9 Disorder of prostate, unspecified; Z79.82 Long term (current) use of aspirin; Z91.013 Allergy to seafood; Z88.8 Allergy status to other drugs, medicaments and biological substances; Z88.0 Allergy status to penicillin
CPT/HCPCS: 36415; 74177; 74177-26; 78227; 78227-26; 80048; 80053; 81001; 85025; 85027; 87040; 87070; 87205; 93005; 94640; 94640-76; 94664; A9270-GY; J0696; J1956; J7030; J7050; J7612; Q9965

== ENCOUNTER 2018-01-31 05:27 | Inpatient (IN) | payer MEDICARE ==
[2018-01-31] MEDS ORDERED: cefOXitin 2 GM in Sodium Chloride 0.9% 50 ML IV ONE ×2 (06:00→07:15)
[2018-01-31] MEDS ORDERED: Dextrose 5%-Lactated Ringers 1,000 ML IV SCH ×2 (06:00→10:00)
[2018-01-31] MEDS ORDERED: Acetaminophen 500 MG Tab PO ONE (06:00)
[2018-01-31] MEDS ORDERED: Albuterol/Ipratropium 3.0-0.5 MG/3 ML Neb Soln NEB ONE (06:00)
[2018-01-31] MEDS ORDERED: Bupivacaine 0.5%/EPINEPHrine 1:200,000 50 ML MDV ONE (06:41)
[2018-01-31] MEDS ORDERED: fentaNYL 250 MCG/5 ML SDV ONE (07:04)
[2018-01-31] MEDS ORDERED: Rocuronium 50 MG/5 ML Vial ONE (07:04)
[2018-01-31] MEDS ORDERED: Propofol 200 MG/20 ML SDV ONE (07:04)
[2018-01-31] MEDS ORDERED: Neostigmine Methylsulfate 1 MG/ML 5 ML Syringe ONE (07:04)
[2018-01-31] MEDS ORDERED: Succinylcholine 200 MG/10 ML MDV ONE (07:04)
[2018-01-31] MEDS ORDERED: Glycopyrrolate 0.2 MG/ML 5 ML MDV ONE (07:04)
[2018-01-31] MEDS ORDERED: Dexamethasone 4 MG/ML SDV ONE (07:04)
[2018-01-31] MEDS ORDERED: Ondansetron 4 MG/2 ML SDV ONE (07:04)
[2018-01-31] MEDS ORDERED: Lactated Ringers 1,000 ML ONE (07:09)
[2018-01-31] MEDS ORDERED: HYDROmorphone/Normal Saline 15 MG/30 ML PCA IV PRN (07:11)
[2018-01-31] MEDS ORDERED: Naloxone 0.4 MG/ML SDV IVPUSH PRN (07:11)
[2018-01-31] MEDS ORDERED: Lidocaine 2% 100 MG/5 ML Syringe IVPUSH ONE (07:30)
[2018-01-31] MEDS ORDERED: Ketamine 500 MG/5 ML MDV IV SCH (07:30)
[2018-01-31] MEDS ORDERED: Ropivacaine 43 ML, Dexamethasone 8 MG, EPINEPHrine 0.4 MG, Sodium Chloride 0.9% 34.6 ML NERVRT SCH ×4 (07:30)
[2018-01-31] MEDS ORDERED: hydrOXYzine HCl 100 MG/2 ML SDV IM ONE (08:40)
[2018-01-31] MEDS ORDERED: hydrOXYzine HCl 25 MG Tab PO PRN (10:19)
[2018-01-31] MEDS ORDERED: hydrOXYzine HCl 100 MG/2 ML SDV IM PRN (10:19)
[2018-01-31] MEDS ORDERED: Albuterol/Ipratropium 3.0-0.5 MG/3 ML Neb Soln INH PRN (10:21)
[2018-01-31] MEDS ORDERED: Nitroglycerin 0.4 MG Tab.SL SL PRN (10:24)
[2018-01-31] MEDS: Lidocaine 0.4%/D5W 2 GM/500 ML BAG IV SCH (10:53)
[2018-01-31] MEDS ORDERED: Albuterol/Ipratropium 3.0-0.5 MG/3 ML Neb Soln INH SCH (11:00)
[2018-01-31] MEDS ORDERED: Ondansetron 4 MG/2 ML SDV IVPUSH PRN (11:00)
[2018-01-31] MEDS: Pantoprazole 40 MG Vial IVPUSH SCH (13:56)
[2018-01-31] MEDS: cefOXitin 2 GM in Sodium Chloride 0.9% 50 ML IV SCH ×2 (13:56→19:57)
[2018-01-31] MEDS: Levalbuterol HCl 1.25 MG/3 ML Neb INH SCH ×2 (14:51→21:24)
[2018-01-31] MEDS ORDERED: Levalbuterol HCl 1.25 MG/3 ML Neb INH SCH (21:00)
[2018-01-31] MEDS: Tamsulosin 0.4 MG Cap.ER PO SCH (21:25)
[2018-01-31] MEDS: Formoterol/Mometasone 200-5 MCG 8.8 GM Inhaler IH SCH (21:25)
[2018-01-31] MEDS: Metoprolol Tartrate 25 MG Tab PO SCH (21:28)
[2018-02-01] MEDS: cefOXitin 2 GM in Sodium Chloride 0.9% 50 ML IV SCH ×2 (01:15→07:30)
[2018-02-01] MEDS: Levalbuterol HCl 1.25 MG/3 ML Neb INH SCH ×4 (07:30→21:47)
[2018-02-01] MEDS: INCRUSE ELLIPTA 62.5MCG INHALER (PTOM) INH SCH (07:30)
[2018-02-01] MEDS: Formoterol/Mometasone 200-5 MCG 8.8 GM Inhaler IH SCH ×2 (07:30→21:47)
[2018-02-01] MEDS: Lidocaine 0.4%/D5W 2 GM/500 ML BAG IV SCH (08:00)
[2018-02-01] MEDS ORDERED: Metoclopramide 10 MG/2 ML SDV IVPUSH SCH (10:00)
[2018-02-01] MEDS: Isosorbide Mononitrate 30 MG Tab.ER PO SCH (11:28)
[2018-02-01] MEDS: Aspirin 81 MG Tab.EC PO SCH (11:28)
[2018-02-01] MEDS: Metoprolol Tartrate 25 MG Tab PO SCH ×2 (11:28→21:50)
[2018-02-01] MEDS: Pantoprazole 40 MG Vial IVPUSH SCH (11:29)
[2018-02-01] MEDS: Metoclopramide 10 MG/2 ML SDV IVPUSH SCH ×3 (11:29→21:47)
[2018-02-01] MEDS: Tamsulosin 0.4 MG Cap.ER PO SCH (21:33)
[2018-02-02] MEDS: Dextrose 5%-Lactated Ringers 1,000 ML IV SCH ×2 (00:19→20:56)
[2018-02-02] MEDS: Metoclopramide 10 MG/2 ML SDV IVPUSH SCH ×4 (04:01→21:01)
[2018-02-02] MEDS: Levalbuterol HCl 1.25 MG/3 ML Neb INH SCH ×4 (07:23→20:55)
[2018-02-02] MEDS: Formoterol/Mometasone 200-5 MCG 8.8 GM Inhaler IH SCH ×2 (07:26→20:55)
[2018-02-02] MEDS: INCRUSE ELLIPTA 62.5MCG INHALER (PTOM) INH SCH (07:27)
--- NOTE | 2018-02-02 08:25 | PCM.SN ---
- Free Text/Narrative Note: Sidney Field is a 72 yo patient admitted by Dr. Jc Guillermo for biliary dyskinesia. He is now post-op day 1 s/p open cholecystectomy (converted from laparoscopic due to extensive adhesions). Subjective: Patient feeling fairly well with [id number] abdominal pain, but is quite bothered by NG tube. Pt continues to have post-op ileus and has not passed stool but has passed flatus. Not currently ambulating. Pt had some temperature elevation yesterday to 100.1, but has not had a measured fever. Nursing staff held tamsulosin b/c patient is NPO; we did note a rise in BNP which may be in part due to this. Physical exam: VS within normal limits at present time Abdomen: distension appreciated Lungs: clear to auscultation bilaterally Heart: regular rate and rhythm, no appreciable edema Labs: CBC and CMP within normal limits. BNP increased to 900 from 400 yesterday. Assessment/Plan: Pain: no acute pain; has Dilaudid [employer] ordered, but has not needed it. Lines/tubes: patient has NG in place, 500 out. Pt bothered by NG. We'll order cepacol spray for his comfort. Respiratory: use incentive spirometry 10/hour every hour. Continue home meds: levoalbuterol, Dulera, Incruse ellipta. Ambulate: as able--try at least 6X/day. Meds: -Change oral metoprolol to IV metoprolol per pharmacy dosing. DVT Prophylaxis: SCDs Other: -Monitor Is and Os--look for resolution of ileus; metoclopramide on board -Consider re-starting tamsulosin Veronica Kenney, MS3
[2018-02-02] MEDS: Aspirin 81 MG Tab.EC PO SCH (09:57)
[2018-02-02] MEDS: Isosorbide Mononitrate 30 MG Tab.ER PO SCH (10:35)
[2018-02-02] MEDS: Metoprolol Tartrate 5 MG/5 ML SDV IV SCH ×3 (10:48→21:05)
[2018-02-02] MEDS ORDERED: Phenol/Sodium Phenolate Mouthwash 180 ML Bottle PO PRN (12:44)
[2018-02-02] MEDS: Pantoprazole 40 MG Vial IVPUSH SCH (13:22)
--- NOTE | 2018-02-02 17:23 | PN ---
DATE OF SERVICE: 02/01/2018 The patient is postop day #1 from an open cholecystectomy. The patient was having some heartburn overnight. He was not started on the Zantac postoperatively, as that apparently was not on his home medication list. We will restart that along with Protonix and add some Reglan to augment gastric emptying. Told him to really push the oral intake today. We will get the NEGOTIATOR on board, back down the IV rate, maximize activity, and work with pulmonary toilet. His drain looks good and the labs likewise showed no problems. Froilan Silverio MD /[id number]
[2018-02-03] MEDS: Metoprolol Tartrate 5 MG/5 ML SDV IV SCH ×4 (04:15→21:32)
[2018-02-03] MEDS: Metoclopramide 10 MG/2 ML SDV IVPUSH SCH ×4 (04:19→21:24)
[2018-02-03] MEDS: Formoterol/Mometasone 200-5 MCG 8.8 GM Inhaler IH SCH ×2 (07:30→21:23)
[2018-02-03] MEDS: INCRUSE ELLIPTA 62.5MCG INHALER (PTOM) INH SCH (07:30)
[2018-02-03] MEDS: Levalbuterol HCl 1.25 MG/3 ML Neb INH SCH ×4 (07:30→21:44)
[2018-02-03] MEDS: Dextrose 5%-Lactated Ringers 1,000 ML IV SCH ×2 (08:16→19:29)
[2018-02-03] MEDS: Aspirin 81 MG Tab.EC PO SCH (08:17)
[2018-02-03] MEDS: Isosorbide Mononitrate 30 MG Tab.ER PO SCH (08:17)
[2018-02-03] MEDS: Bisacodyl 10 MG Supp RECTAL SCH ×2 (08:20→21:20)
--- NOTE | 2018-02-03 13:10 | PCM.SN ---
- Free Text/Narrative Note: Sidney is a 72 yo male POD2 s/p open cholecystectomy. Subjective: Patient feeling fairly well with 4-5/10 RLQ abdominal "soreness." He also continues to be bothered by the NG tube, which he says makes it hard for him to take a deep breath because his throat is so sore. Despite this, he has been using incentive spirometer 10x/hr, every hour, which he says does not bother him. He was given Cepacol spray yesterday, but did not like it because he said it made it difficult for him to swallow. Pt's post-op ileus seems to have resolved given a small, soft bowel movement this morning and a large, soft bowel movement this afternoon after receiving a suppository. He is ambulating to the bathroom and back and reports baseline shortness of breath with such activity. No acute overnight events. Objective: VS: Temperature elevation to 100.2 yesterday afternoon (02/02); otherwise vitally stable General: pleasant man in no acute distress Eyes: mild scleral icterus Heart: 3/6 systolic murmur of LUSB radiating toward carotids, distant heart sounds making rate and rhythm difficult to appreciate Lungs: clear to auscultation bilaterally Abdomen: distended throughout, particularly in LLQ; mild tenderness to palpation equally throughout abdomen, bowel sounds present Extremities: SCDs in place, no edema No new labs or images. Assessment/Plan: General: POD2 s/p open cholecystectomy with post-op ileus that has now resolved. Generally feeling near baseline. -Pain: no acute pain; Dilaudid [employer]IPMENT [employer]LECTRICIAN ordered, but pt has not needed it. -Lines/tubes: patient has NG in place; 350mL out so far today. BIANCA in place with 25mL serosanguinous drainage. No rosenberg. -Plan to remove NG once large bm is confirmed -Respiratory: pulmonary hygiene including home meds -Ambulate as able
[2018-02-03] MEDS: Pantoprazole 40 MG Vial IVPUSH SCH (14:15)
[2018-02-03] MEDS: Sodium Chloride 0.9% 10 ML Syringe FLUSH PRN ×3 (16:25→21:25)
[2018-02-04] MEDS: Metoclopramide 10 MG/2 ML SDV IVPUSH SCH ×4 (04:00→21:19)
[2018-02-04] MEDS: Metoprolol Tartrate 5 MG/5 ML SDV IV SCH ×4 (04:13→21:59)
[2018-02-04] MEDS: Dextrose 5%-Lactated Ringers 1,000 ML IV SCH ×2 (06:43→17:44)
[2018-02-04] MEDS: Formoterol/Mometasone 200-5 MCG 8.8 GM Inhaler IH SCH ×2 (07:29→21:18)
[2018-02-04] MEDS: Levalbuterol HCl 1.25 MG/3 ML Neb INH SCH ×4 (07:29→21:17)
[2018-02-04] MEDS: INCRUSE ELLIPTA 62.5MCG INHALER (PTOM) INH SCH (07:29)
[2018-02-04] MEDS: Isosorbide Mononitrate 30 MG Tab.ER PO SCH (08:08)
[2018-02-04] MEDS: Aspirin 81 MG Tab.EC PO SCH (08:08)
--- NOTE | 2018-02-04 08:31 | PCM.SN ---
- Free Text/Narrative Note: Sidney is a 72 yo male POD#3 s/p open cholecystectomy. Subjective: Sidney is feeling fairly well this morning with continued 4-5/10 RLQ "soreness." He had 5 soft bowel movements yesterday and is quite excited about the prospect of having his NG tube removed this evening. He continues to have elevations in his temperature in the evening hours--he had a fever last night of 100.9 and has had elevations about 100 for the past three consecutive evenings, but does not complain of new pain/discomfort, urinary symptoms, or cough out of the normal. Objective: VS: Temperature elevation to 100.9; otherwise vitally stable with 2.5L O2 via nasal cannula Ins/outs: -Net: 1.2L -NG output: 450mL -BIANCA drainage: 40mL General: pleasant man in no acute distress Heart: 3/6 systolic murmur heard at LUSB radiating toward carotids, distant heart sounds making rate and rhythm difficult to appreciate Lungs: clear to auscultation bilaterally Abdomen: mild distension throughout, but decreased from yesterday; tenderness in LLQ (also decreased from yesterday), bowel sounds present Extremities: SCDs in place, no edema No new labs or images. Assessment 1. 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 Clamp NG tube; if no distension or new abdominal pain within 12 hours, then remove NG tube later this evening 2. Pulmonary hygiene 3. Control pain 4. Ambulate as able 5. Recheck in AM or PRN
--- NOTE | 2018-02-04 11:24 | PN ---
DATE OF SERVICE: 02/04/2018 SUBJECTIVE: Sidney has had 5 bowel movements. NG tube put out 450. BIANCA put out 40. Urinating adequately. Pain is controlled. Has had no nausea or vomiting. He has been on ice chips and taking very minimally. REVIEW OF SYSTEMS: Remainder of review of systems is negative for any pertinent positives and negatives. OBJECTIVE: GENERAL: Sidney Field is a 72-year-old male, alert, and orientated. VITAL SIGNS: TPR 99.7, 62, 16, and blood pressure 125/67. Then at 7:00 this morning, it was 147/103, and it will be rechecked. HEENT: Negative. NECK: Supple. HEART: Regular rate and rhythm. LUNGS: Clear. ABDOMEN: Dressings dry and intact. BIANCA drain as above. EXTREMITIES: Without peripheral edema. ASSESSMENT: Laparoscopy turned to laparotomy for cholecystectomy. PLAN: 1. Clamp NG, unclamp p.r.n. any nausea, vomiting, or bloating. 2. Ice chips. We will evaluate p.r.n. or in the a.m. Sheri Barbosa PA-C /[id number]
[2018-02-04] MEDS: Pantoprazole 40 MG Vial IVPUSH SCH (12:41)
[2018-02-04] MEDS: Tamsulosin 0.4 MG Cap.ER PO SCH (21:18)
[2018-02-05] MEDS ORDERED: HYDROmorphone 2 MG Tab PO PRN (00:07)
[2018-02-05] MEDS: Metoprolol Tartrate 5 MG/5 ML SDV IV SCH (03:44)
[2018-02-05] MEDS: Metoclopramide 10 MG Tab PO SCH ×4 (03:50→21:07)
[2018-02-05] MEDS: Levalbuterol HCl 1.25 MG/3 ML Neb INH SCH ×4 (07:45→21:06)
[2018-02-05] MEDS: INCRUSE ELLIPTA 62.5MCG INHALER (PTOM) INH SCH (07:46)
[2018-02-05] MEDS: Formoterol/Mometasone 200-5 MCG 8.8 GM Inhaler IH SCH ×2 (07:46→21:06)
[2018-02-05] MEDS ORDERED: Ondansetron 4 MG Tab.DIS PO PRN (08:21)
[2018-02-05] MEDS ORDERED: Isosorbide Mononitrate 30 MG Tab.ER PO SCH (09:00)
[2018-02-05] MEDS: Potassium Chloride 10% 20 MEQ/15 ML Soln 15 ML UD Cup PO SCH ×3 (09:01→18:34)
[2018-02-05] MEDS: Aspirin 81 MG Tab.EC PO SCH (09:01)
[2018-02-05] MEDS: Isosorbide Mononitrate 30 MG Tab.ER PO SCH (09:01)
[2018-02-05] MEDS: Metoprolol Tartrate 25 MG Tab PO SCH ×2 (09:01→21:05)
--- NOTE | 2018-02-05 12:04 | PN ---
DATE OF SERVICE: 02/05/2018 SUBJECTIVE: Sidney had 3 large bowel movements. His NG did fall out. His IV infiltrated and nursing staff was unable to get it re-started, and his oral intake was adequate, so was left out. Vital signs have remained stable. He has had no nausea. He has been up ambulating. REVIEW OF SYSTEMS: Remainder of review of systems negative for any pertinent positives and negatives. LABORATORY DATA: Labs this morning, potassium was 3.2. OBJECTIVE: GENERAL: Sidney Field is a 72-year-old male. He is alert and orientated. VITAL SIGNS: TPR 98.8, 71, 14; blood pressure 128/63. HEENT: Negative. NECK: Supple. HEART: Regular rate and rhythm. LUNGS: Clear. ABDOMEN: Incision examined and justice intact. He does have a midline round BIANCA drain and it drained in the past 24 hours, 10 mL of a light pink serosanguineous drainage. ASSESSMENT: 1. Laparoscopy turned to laparotomy with lysis of adhesions, cholecystectomy, and repair of incisional hernia for extensive intraabdominal adhesions, chronic cholecystectomy and incisional hernia, 01/31/2018. 2. Postoperative ileus. PLAN: 1. KCl p.o. 20 mEq t.i.d. 2. Full liquid diet. 3. Restart metoprolol 25 mg p.o. b.i.d. and Imdur 30 mg p.o. daily. 4. Discontinue telemetry. 5. Discontinue Protonix IV and changed to Protonix 40 mg p.o. 6. May shower. 7. Check CBC, CMP, mag, and phos in a.m. 8. Telemetry and continuous pulse ox were discontinued. 9. We will evaluate p.r.n. or in a.m. Sheri Barbosa PA-C /[id number]
[2018-02-05] MEDS: Tamsulosin 0.4 MG Cap.ER PO SCH (21:06)
[2018-02-06] MEDS: Metoclopramide 10 MG Tab PO SCH ×4 (04:37→21:08)
[2018-02-06] MEDS: Levalbuterol HCl 1.25 MG/3 ML Neb INH SCH ×4 (07:56→20:30)
[2018-02-06] MEDS: INCRUSE ELLIPTA 62.5MCG INHALER (PTOM) INH SCH (07:58)
[2018-02-06] MEDS: Formoterol/Mometasone 200-5 MCG 8.8 GM Inhaler IH SCH ×2 (07:58→20:30)
[2018-02-06] MEDS: Aspirin 81 MG Tab.EC PO SCH (08:56)
[2018-02-06] MEDS: Potassium Chloride 10% 20 MEQ/15 ML Soln 15 ML UD Cup PO SCH (08:56)
[2018-02-06] MEDS: Metoprolol Tartrate 25 MG Tab PO SCH ×2 (08:57→20:30)
[2018-02-06] MEDS: Isosorbide Mononitrate 30 MG Tab.ER PO SCH (08:57)
--- NOTE | 2018-02-06 11:18 | PN ---
DATE OF SERVICE: 02/06/2018 SUBJECTIVE: Sidney had 1200 of a full liquid diet. He is voiding and had 2 bowel movements. States he remains to be a little bit distended, but states it is soft, and he is feeling much better, weak, but he states that is improving. Pain is controlled. OBJECTIVE: GENERAL: Sidney Field is a pleasant 72-year-old male. VITAL SIGNS: TPR is 99.1, 60, 16, and blood pressure 124/61. HEENT: Negative. NECK: Supple. HEART: Regular rate and rhythm. LUNGS: Clear. ABDOMEN: Incisions look good. [place] intact. He has one BIANCA drain, which put out 30 mL of a light pink serosanguineous drainage. EXTREMITIES: Without peripheral edema. ASSESSMENT: 1. Laparoscopy turned to laparotomy with lysis of adhesions, cholecystectomy, and repair of incisional hernia for extensive intraabdominal adhesions, chronic cholecystectomy, and incisional hernia, 01/31/2018. 2. Postoperative ileus, resolved. PLAN: 1. Check CBC, CMP, mag, and phos in a.m. 2. Continue full liquid diet. 3. We will evaluate p.r.n. or in a.m. Sheri Barbosa PA-C /[id number]
[2018-02-06] MEDS: Tamsulosin 0.4 MG Cap.ER PO SCH (20:30)
[2018-02-07] MEDS: Metoclopramide 10 MG Tab PO SCH ×4 (04:41→21:17)
[2018-02-07] MEDS: Formoterol/Mometasone 200-5 MCG 8.8 GM Inhaler IH SCH ×2 (07:39→21:14)
[2018-02-07] MEDS: INCRUSE ELLIPTA 62.5MCG INHALER (PTOM) INH SCH (07:39)
[2018-02-07] MEDS: Levalbuterol HCl 1.25 MG/3 ML Neb INH SCH ×4 (07:40→21:21)
--- NOTE | 2018-02-07 08:34 | PN ---
DATE OF SERVICE: 02/07/2018 SUBJECTIVE: Sidney has been doing well on a full liquid diet. He has been up ambulating with his walker, accompanied by his . Oral intake 1300. Urine output 850. BIANCA drain put out 25 mL of a light pink serosanguineous drainage. He remains to be on a full liquid diet and tolerating that well. Feels like he can advance his diet. He has had 4 BMs yesterday. REVIEW OF SYSTEMS: Remainder of review of systems negative for any pertinent positives and negatives with the exception that he did take one Dilaudid yesterday. He thought he walked more than he had in the past. PLAN: Discharge in a.m. He will be going home with his , whom he feels comfortable in taking care of him, as well as a daughter who lives on the same property. Sheri Barbosa PA-C /[id number]
[2018-02-07] MEDS: Aspirin 81 MG Tab.EC PO SCH (08:45)
[2018-02-07] MEDS: Metoprolol Tartrate 25 MG Tab PO SCH ×2 (08:45→21:16)
[2018-02-07] MEDS: Isosorbide Mononitrate 30 MG Tab.ER PO SCH (08:45)
[2018-02-07] MEDS: Tamsulosin 0.4 MG Cap.ER PO SCH (21:17)
[2018-02-08] MEDS: Metoclopramide 10 MG Tab PO SCH ×2 (03:48→10:13)
[2018-02-08] MEDS: Levalbuterol HCl 1.25 MG/3 ML Neb INH SCH ×2 (08:54→11:38)
[2018-02-08] MEDS: Formoterol/Mometasone 200-5 MCG 8.8 GM Inhaler IH SCH (08:54)
[2018-02-08] MEDS: INCRUSE ELLIPTA 62.5MCG INHALER (PTOM) INH SCH (08:54)
[2018-02-08 10:11] VITALS: BP 105/62
[2018-02-08] MEDS: Isosorbide Mononitrate 30 MG Tab.ER PO SCH (10:12)
[2018-02-08] MEDS: Aspirin 81 MG Tab.EC PO SCH (10:12)
[2018-02-08] MEDS: Metoprolol Tartrate 25 MG Tab PO SCH (10:13)
--- NOTE | 2018-02-09 16:31 | OR ---
DATE OF PROCEDURE: 01/31/2018 PREOPERATIVE DIAGNOSIS: Chronic cholecystitis and cholelithiasis. POSTOPERATIVE DIAGNOSES: 1. Chronic cholecystitis and cholelithiasis. 2. Extensive intra-abdominal adhesions requiring laparotomy. 3. Incisional hernia. OPERATIVE PROCEDURES: Diagnostic laparoscopy converted to open laparotomy with lysis of adhesions and: 1. Cholecystectomy (76714). 2. Repair of incisional hernia (63427). ANESTHESIA: General. DIRECTOR OF REAL ESTATE: Sheri Barbosa PA-C. INDICATION FOR PROCEDURE: This is a 72-year-old presenting with recurrent episodes of biliary colic with noted cholelithiasis. Plan is to proceed with a laparoscopy with possible laparotomy and cholecystectomy. The patient is status post multiple abdominal procedures including a complicated colon procedure and splenectomy for trauma, so he is aware of the possibility for conversion to an open approach given the possibility of adhesions. Potential risks otherwise including bleeding, infection, injury to underlying viscera, problems with stones migrating into the common bile duct requiring additional interventions were all reviewed, along with the possibility of cardiopulmonary, septic, or hemorrhagic complications leading to and the patient wishes to proceed. DETAILS OF PROCEDURE: The patient was taken to the operating room and after general endotracheal anesthesia was induced using ultrasound guidance, bilateral transversus abdominis plane blocks were placed in subcostal location with standard solution and continuous ultrasound guidance. Following this given the midline incision extending from the xiphoid to the pubis, the right lateral abdomen was incised and a 12 mm Optiview trocar was placed. It was placed in intraperitoneal location and appeared to be quite extensive omental adhesions in that area. Second approach was then attempted in the right lower quadrant with similar findings. Then finally in the epigastric area retracting toward the right away from the midline resulted in same finding. There was no evidence of any bowel injury or even in contact with the bowel by visualization with an Optiview trocar during these insertions. Given these findings, at this point, decision was made to proceed with an open procedure after removal of final trocar, that incision was then extended in the right subcostal area and carried down through the full-thickness of abdominal wall. In the medial aspect of this through one of the chest tube sites used for his median sternotomy, the patient was noted to have roughly about 2 cm incisional hernia. This was repaired as part of the subsequent closure. As one entered the abdomen underneath the incision, predominantly omental adhesions were then taken down to the point that the area of the gallbladder and area of the cystohepatic triangle sporadically exposed and above known approach was taken with regard to the cholecystectomy beginning dissection between the liver and the gallbladder fundus with electrocautery. This was then continued downward to the point where the cystohepatic triangle was well delineated. Both the cystic artery and duct were then clearly visualized, and were then stapled with a single firing of the PRASANTH smith load. Gallbladder was then removed off the field and was noted to contain multiple soft black stones. At this point, no further problems were noted. The abdomen was irrigated with antibiotic- containing saline solution. The incision was then closed with a layer of #2 Vicryl stitch in the posterior rectus sheath and this was then continued closing the anterior rectus sheath beginning in the linea alba and the latter included closure of the area of herniation which was more or less of quite medial where there was still a unified linea alba i.e., medial to the rectus muscle and the suture was then continued laterally where it united with original more internal suture. The skin was then irrigated with antibiotic-containing saline solution and then closed with justice. Justin-Hansen drain had been placed lateral to the main incisions, which was sutured with some 4-0 Vicryl stitch, and the patient was taken to the recovery room in satisfactory condition. Physician assistant scientist, Sheri Barbosa, played an essential role in assisting in this case, helping to position the patient, retract structures as needed, as well as suturing and cutting sutures when indicated. Her presence improved the patient's safety and decreased operative time. Froilan Silverio MD /[id number]
== END 2018-02-08 12:15 | disposition home or self-care (01) | DRG 415 ==
LOC: JP.SDS 05:27 → JP.MS 05:27 → JP.2SS 06:00 → EDSTATUS 09:00
PROVIDERS: ADMIT Surgery; ATTEND Surgery
PROC: 0FT40ZZ Resection of Gallbladder, Open Approach (ICD-10-PCS; principal; 2018-01-31)
PROC: 0FJ44ZZ Inspection of Gallbladder, Percutaneous Endoscopic Approach (ICD-10-PCS; 2018-01-31)
PROC: 0DNU0ZZ Release Omentum, Open Approach (ICD-10-PCS; 2018-01-31)
PROC: 0WQF0ZZ Repair Abdominal Wall, Open Approach (ICD-10-PCS; 2018-01-31)
PROC: 3E0T3BZ Introduction of Anesthetic Agent into Peripheral Nerves and Plexi, Percutaneous Approach (ICD-10-PCS; 2018-01-31)
DX: K80.10 Calculus of gallbladder with chronic cholecystitis without obstruction (principal); K56.7 Ileus, unspecified; K43.2 Incisional hernia without obstruction or gangrene; Z53.31 Laparoscopic surgical procedure converted to open procedure; J44.9 Chronic obstructive pulmonary disease, unspecified; I25.10 Atherosclerotic heart disease of native coronary artery without angina pectoris; F32.9 Major depressive disorder, single episode, unspecified; E78.5 Hyperlipidemia, unspecified; E87.6 Hypokalemia; Z87.01 Personal history of pneumonia (recurrent); K66.0 Peritoneal adhesions (postprocedural) (postinfection); Z88.0 Allergy status to penicillin; Z88.8 Allergy status to other drugs, medicaments and biological substances; Z79.82 Long term (current) use of aspirin
CPT/HCPCS: 36415; 80048; 80053; 82247; 83735; 83880; 84075; 84100; 85027; 88304; 94640; 94640-76; 94762; A9270-GY; C9113; J0171; J0330; J0694; J1100; J1170; J2001; J2405; J2704; J2710; J2765; J2795; J3010; J3410; J3490; J7030; J7042; J7050; J7120; J7612; J7620

== ENCOUNTER 2021-11-15 12:34 | Emergency (ER) | payer MEDICARE ==
[2021-11-15 13:46] LABS: CORONAVIRUS COVID-19 NAA NEGATIVE (NEGATIVE)
[2021-11-15] MEDS ORDERED: Sodium Chloride 0.9% 10 ML Syringe FLUSH PRN (13:53)
[2021-11-15] MEDS ORDERED: fentaNYL 100 MCG/2 ML SDV IVPUSH ONE (13:53)
[2021-11-15] MEDS ORDERED: Ondansetron 4 MG/2 ML SDV IVPUSH ONE (13:53)
--- NOTE | 2021-11-15 13:56 | EDM.PDOC ---
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 ONETIME ONE Administration Heparin Sodium (Porcine) 4,000 units 11/16/21 10:27 11/16/21 10:37 Heparin Sodium 5,000 Units/Ml Vial IVPUSH 11/16/21 10:28 4,000 units ONETIME ONE Administration Doxycycline Hyclate 100 mg/ 100 mls @ 100 mls/hr 11/15/21 16:11 11/15/21 17:05 Sodium Chloride IV 11/15/21 17:10 100 mls/hr ONETIME ONE Administration Ceftriaxone Sodium 1 gm/ 50 mls @ 100 mls/hr 11/15/21 16:11 11/15/21 16:32 Sodium Chloride IV 11/15/21 16:40 100 mls/hr ONETIME ONE Administration Lactated Ringer's 1,000 mls @ 999 mls/hr 11/15/21 16:22 11/15/21 16:34 Ringers, Lactated IV 11/15/21 17:22 999 mls/hr BOLUS ONE Administration Lactated Ringer's 1,000 mls @ 999 mls/hr 11/15/21 17:27 11/15/21 17:30 Ringers, Lactated IV 11/15/21 18:27 999 mls/hr BOLUS ONE Administration Methylprednisolone Sodium Succinate 40 mg 11/16/21 09:14 11/16/21 10:08 Methylprednisolone Sodium Succinate 40 Mg/1 Ml Sdv IVPUSH 11/16/21 09:15 40 mg ONETIME ONE Administration Non-Formulary Medication 1.25 mg 11/16/21 10:00 Levalbuterol Hcl [Xopenex] NEB QID [facility] Non-Formulary Medication 10 mg 11/16/21 09:15 Omeprazole Magnesium [Prilosec] PO DAILY [facility] Ondansetron HCl 4 mg 11/15/21 13:53 11/15/21 14:40 Ondansetron 4 Mg/2 Ml Sdv IVPUSH 11/15/21 13:54 4 mg ONETIME ONE Administration Sodium Chloride 10 ml 11/15/21 14:23 11/15/21 14:54 Sodium Chloride 0.9% 10 Ml Sdv FLUSH 11/15/21 14:24 10 ml ONETIME ONE Administration Sodium Chloride 10 ml 11/15/21 19:33 11/15/21 20:06 Sodium Chloride 0.9% 10 Ml Sdv FLUSH 11/15/21 19:34 10 ml ONETIME ONE Administration Ticagrelor 180 mg 11/16/21 10:27 11/16/21 10:37 Ticagrelor 90 Mg Tab PO 11/16/21 10:28 180 mg ONETIME ONE Administration - Re-Assessments/Exams Free Text/Narrative Re-Assessment/Exam: 11/16/21 09:11 Patient states he is feeling significantly better now than when he came in however nursing staff did get him up to go to the bathroom today when that happened they noticed his oxygen saturation plummeted down into the 60s felt very short of breath was placed back in bed placed on a nonrebreather oxygen saturations did respond to external oxygen. DuoNeb was provided he states this does help him quite a bit. On exam he has decreased lung sounds he is wheezy on the expiratory phase bilaterally Discussed case with hospitalist service we are planning on trying to get him admitted here hospitalist service will help with management of this patient while in the emergency department until we can find more permanent placement. Will order another procalcitonin as well as troponin and continue further management Departure - Departure Time of Disposition: 11:33 Condition: Fair Sepsis Event Note (ED) - Evaluation Sepsis Screening Result: No Definite Risk - Focused Exam Vital Signs: Vital Signs Temp Pulse Pulse Resp BP BP Pulse Ox 11/16/21 11:00 80 21 H 120/54 L 92 L 11/16/21 10:03 87 116/60 11/16/21 10:00 97.2 F 68 11 L 116/60 93 L 11/16/21 09:01 11/16/21 09:00 61 7 L 111/48 L 97 11/16/21 08:00 65 19 111/48 L 90 L 11/16/21 05:59 15 103/50 L 91 L 11/16/21 05:12 59 L 109/57 L 11/16/21 04:48 14 111/62 97 11/16/21 04:15 16 111/55 L 96 11/16/21 03:23 17 122/60 95 11/16/21 02:40 13 118/57 L 95 11/16/21 01:44 13 109/68 97 11/16/21 01:25 135/59 L 11/16/21 01:00 15 128/68 100 11/15/21 23:53 18 120/67 94 L Pulse Ox 11/16/21 11:00 11/16/21 10:03 11/16/21 10:00 11/16/21 09:01 97 11/16/21 09:00 11/16/21 08:00 11/16/21 05:59 11/16/21 05:12 11/16/21 04:48 11/16/21 04:15 11/16/21 03:23 11/16/21 02:40 11/16/21 01:44 11/16/21 01:25 11/16/21 01:00 11/15/21 23:53 - My Orders Last 24 Hours: My Active Orders 11/15/21 12:36 Isolation [COMM] Stat 11/15/21 13:53 Sodium Chloride 0.9% [Saline Flush] 10 ml FLUSH ASDIRECTED PRN Peripheral IV Insertion Adult [OM.PC] Urgent 11/15/21 13:54 Peripheral IV Care [RC] . DIRECTED 11/15/21 14:00 Sodium Chloride 0.9% [Normal Saline] 1,000 ml IV ASDIRECTED 11/15/21 14:23 Iopamidol [Isovue-300 (61%)] 124 ml IV . DIRECTED PRN 11/15/21 14:30 Sodium Chloride 0.9% [Normal Saline] 100 ml IV ASDIRECTED 11/15/21 16:05 Chest 1V Frontal [CR] Stat Blood Culture x2 Reflex Set [OM.PC] Urgent 11/15/21 16:20 CULTURE BLOOD [BC] Urgent 11/15/21 16:22 CULTURE BLOOD [BC] Urgent 11/15/21 16:48 CULTURE URINE [RM] Urgent 11/15/21 17:00 Norepinephrine Bit/D5W Premix [Norepinephrine-D5W 4 MG/250 ML Premix] 4 mg Premix Bag 1 bag IV TITRATE 11/15/21 19:00 Vasopressin 100 units Dextrose 5% in Water 250 ml IV TITRATE 11/15/21 19:40 EKG 12 Lead [EK] Stat 11/15/21 19:45 Iopamidol [Isovue-370 (76%)] 69 ml IV . DIRECTED Sodium Chloride 0.9% [Normal Saline] 100 ml IV ASDIRECTED 11/16/21 09:04 RT Aerosol Therapy [RC] ASDIRECTED Albuterol/Ipratropium [DuoNeb 3.0-0.5 MG/3 ML] 3 ml NEB Q4H PRN 11/16/21 09:08 Chest 1V Frontal [CR] Urgent 11/16/21 09:15 Aspirin [Halfprin] 81 mg PO DAILY Fluticasone/Salmeterol [Advair 250-50] 1 inh INH BID Isosorbide Mononitrate [Imdur] 30 mg PO BID Metoprolol Tartrate [Lopressor] 25 mg PO BID Ranitidine [Zantac] 150 mg PO DAILY Umeclidinium [place] [Incruse Ellipta] 62.5 mcg IH BID 11/16/21 09:30 Pantoprazole [ProTONIX] 40 mg PO ACBREAKFAST 11/16/21 10:27 Cardiac Monitoring [RC] STAT Oxygen Therapy [RC] ASDIRECTED 11/16/21 10:30 Heparin Sodium/D5W [Heparin 25,000 Units in D5W 500 ML] 25,000 units in 500 ml IV TITRATE 11/16/21 11:00 levalbuterol HCL [Xopenex] 1.25 mg INH QIDRT 11/16/21 11:02 EKG 12 Lead [EK] Stat 11/16/21 16:00 TROPONIN I HIGH SENSITIVITY [CHEM] Stat 11/16/21 21:00 Tamsulosin [Flomax] 0.4 mg PO BEDTIME atorvaSTATin [Lipitor] 20 mg PO BEDTIME - Assessment/Plan Last 24 Hours: My Active Orders 11/15/21 12:36 Isolation [COMM] Stat 11/15/21 13:53 Sodium Chloride 0.9% [Saline Flush] 10 ml FLUSH ASDIRECTED PRN Peripheral IV Insertion Adult [OM.PC] Urgent 11/15/21 13:54 Peripheral IV Care [RC] . DIRECTED 11/15/21 14:00 Sodium Chloride 0.9% [Normal Saline] 1,000 ml IV ASDIRECTED 11/15/21 14:23 Iopamidol [Isovue-300 (61%)] 124 ml IV . DIRECTED PRN 11/15/21 14:30 Sodium Chloride 0.9% [Normal Saline] 100 ml IV ASDIRECTED 11/15/21 16:05 Chest 1V Frontal [CR] Stat Blood Culture x2 Reflex Set [OM.PC] Urgent 11/15/21 16:20 CULTURE BLOOD [BC] Urgent 11/15/21 16:22 CULTURE BLOOD [BC] Urgent 11/15/21 16:48 CULTURE URINE [RM] Urgent 11/15/21 17:00 Norepinephrine Bit/D5W Premix [Norepinephrine-D5W 4 MG/250 ML Premix] 4 mg Premix Bag 1 bag IV TITRATE 11/15/21 19:00 Vasopressin 100 units Dextrose 5% in Water 250 ml IV TITRATE 11/15/21 19:40 EKG 12 Lead [EK] Stat 11/15/21 19:45 Iopamidol [Isovue-370 (76%)] 69 ml IV . DIRECTED Sodium Chloride 0.9% [Normal Saline] 100 ml IV ASDIRECTED 11/16/21 09:04 RT Aerosol Therapy [RC] ASDIRECTED Albuterol/Ipratropium [DuoNeb 3.0-0.5 MG/3 ML] 3 ml NEB Q4H PRN 11/16/21 09:08 Chest 1V Frontal [CR] Urgent 11/16/21 09:15 Aspirin [Halfprin] 81 mg PO DAILY Fluticasone/Salmeterol [Advair 250-50] 1 inh INH BID Isosorbide Mononitrate [Imdur] 30 mg PO BID Metoprolol Tartrate [Lopressor] 25 mg PO BID Ranitidine [Zantac] 150 mg PO DAILY Umeclidinium [place] [Incruse Ellipta] 62.5 mcg IH BID 11/16/21 09:30 Pantoprazole [ProTONIX] 40 mg PO ACBREAKFAST 11/16/21 10:27 Cardiac Monitoring [RC] STAT Oxygen Therapy [RC] ASDIRECTED 11/16/21 10:30 Heparin Sodium/D5W [Heparin 25,000 Units in D5W 500 ML] 25,000 units in 500 ml IV TITRATE 11/16/21 11:00 levalbuterol HCL [Xopenex] 1.25 mg INH QIDRT 11/16/21 11:02 EKG 12 Lead [EK] Stat 11/16/21 16:00 TROPONIN I HIGH SENSITIVITY [CHEM] Stat 11/16/21 21:00 Tamsulosin [Flomax] 0.4 mg PO BEDTIME atorvaSTATin [Lipitor] 20 mg PO BEDTIME Plan: Assessment Acuity = acute Site and laterality = non-ST elevation myocardial infarction Etiology = probable underlying coronary artery disease Manifestations = dyspnea Location of injury = Home Lab values = hemoglobin initially 9.9 yesterday now 9.4 this morning consistent with macro chromic anemia potassium low 3.2 yesterday now 3.4 this morning this is a hypokalemia lactic acid through the last 24 hours 3.13.0 and then normalized to 1.9 earlier this morning troponin initially on admit to the ED was 11.5 now markedly elevated 14,656.7 concern for non-ST elevation myocardial infarction procalcitonin initially 0.25 now this morning 0.43 urinalysis unremarkable COVID was negative influenza negative RSV negative, chest x-ray no acute process yesterday or this morning official read radiologist pending CT angiogram showed no pulmonary embolism CT of the abdomen showed no acute process Plan Called and discussed case with Dr. Mccarthy hospitalist on-call at [facility] kindly excepted the patient to transport at 1120 thus far he has been given aspirin, Brilinta heparin bolus 4000 units we will do heparin drip in route remains on oxygen he is off his Levophed drip which was required through the night because he was severely hypotensive he has received 3 L of fluid This note was dictated using [employer] voice recognition software please call with any questions on syntax or grammar.
[2021-11-15] MEDS ORDERED: Sodium Chloride 0.9% 1,000 ML IV SCH (14:00)
[2021-11-15] MEDS ORDERED: Sodium Chloride 0.9% 10 ML SDV FLUSH ONE ×2 (14:23→19:33)
[2021-11-15] MEDS ORDERED: Iopamidol 612 MG/ML 150 ML Bottle IV PRN (14:23)
[2021-11-15] MEDS: Sodium Chloride 0.9% 100 ML IV SCH ×2 (14:54→20:05)
--- NOTE | 2021-11-15 15:40 | CRLCT ---
For Patients: As a result of the Century Cures Act, medical imaging exams and procedure reports are released immediately into your electronic medical record. You may view this report before your referring provider. If you have questions, please contact your health care provider. Indication: Generalized abdominal pain. Technique: Multiple contiguous axial images were obtained from the lung bases through the symphysis pubis after the intravenous administration 124 cc Isovue-300. Please note that all CT scans at this facility use dose modulation, iterative reconstruction, and/or weight-based dosing when appropriate to reduce radiation dose to as low as reasonably achievable. Comparison: None Findings: The right lung base is clear. Increased interstitial opacities are identified within the left lower lobe. No pleural effusion or pneumothorax is identified. Bilateral probable adrenal adenomas are identified, small. An infrarenal abdominal aortic aneurysm is identified. This measures 3.7 x 3.8 centimeters in size. The liver, spleen, pancreas, adrenals, and kidneys are normal. No intrahepatic biliary ductal dilatation is identified. Bilateral nonobstructing renal calculi are identified. In the pelvis, the urinary bladder is normal. The prostate gland is normal. The small and large bowel are normal in caliber. On the ascending colon in the distal ileum are completely decompressed. Thickening of bowel flynn identified in this region due to lack of distention. No free fluid or free air is identified within the abdomen or pelvis. Colonic diverticulosis is identified. There is no evidence of diverticulitis. Vascular calcifications are identified the small large bowel are normal in caliber. The right common iliac artery measures 2.6 centimeters in size. A left common iliac artery is normal in caliber. Degenerative changes of the spine are identified. No lytic or blastic lesions are identified. Large Schmorl`s node identified at the inferior aspect of the L2 vertebral body. A small hiatal hernia is identified. Impression: Bilateral nonobstructing renal calculi. Infrarenal abdominal aortic aneurysm. Right common iliac artery aneurysm. Decompressed ascending colon and distal ileum. Bilateral probable adrenal adenomas, small. Please note that all CT scans at this facility use dose modulation, iterative reconstruction, and/or weight-based dosing when appropriate to reduce radiation dose to as low as reasonably achievable. Dictated by May Javier MD @ 11/15/2021 3:40:05 PM (Electronically Signed)
[2021-11-15] MEDS ORDERED: cefTRIAXone 1 GM in Sodium Chloride 0.9% 50 ML IV ONE (16:11)
[2021-11-15] MEDS ORDERED: Doxycycline 100 MG in Sodium Chloride 0.9% 100 ML IV ONE (16:11)
[2021-11-15] MEDS ORDERED: Lactated Ringers 1,000 ML IV ONE ×2 (16:22→17:27)
[2021-11-15] MEDS: Norepinephrine Bit/D5W Premix 4 MG in Premix Bag 1 BAG IV SCH ×2 (17:00→23:52)
[2021-11-15] MEDS ORDERED: Vasopressin 100 UNITS in Dextrose 5% in Water 250 ML IV SCH ×2 (19:00)
[2021-11-15] MEDS ORDERED: Sodium Chloride 0.9% 100 ML IV SCH (19:45)
[2021-11-15] MEDS ORDERED: Iopamidol 755 Mg/ML 100 ML Bottle IV SCH (19:45)
--- NOTE | 2021-11-15 20:46 | CRLCT ---
For Patients: As a result of the Century Cures Act, medical imaging exams and procedure reports are released immediately into your electronic medical record. You may view this report before your referring provider. If you have questions, please contact your health care provider. INDICATION: Shortness of breath. TECHNIQUE: CT pulmonary angiogram utilizing 69 mL of Isovue-370 intravenous contrast. Coronal and sagittal reformats. COMPARISON: Chest CT 08/10/2018. FINDINGS: The central airways are patent. Diffuse bronchial wall thickening. Advanced emphysema. Mild patchy ground-glass opacities predominating in the left greater than right lower lungs. Heterogeneous consolidation involving the anterior basilar left lower lobe. Scattered areas of smooth interlobular septal thickening. No pneumothorax or pleural effusion. No pulmonary arterial filling defect identified. Normal caliber thoracic aorta with moderate atherosclerotic changes. Mild cardiomegaly with right atrial enlargement. Heavy coronary artery calcifications. No pericardial effusion. Interval enlarged mediastinal lymph nodes including reference preaortic 1.2 cm node (series 4, image 40), AP window 1.4 cm node (series 4, image 55), and subcarinal 1.3 cm node (series 4, image 75). Newly enlarged left hilar 1.1 cm node (series 4, image 84) and right hilar 1.1 cm node (series 4, image 88). Status post median sternotomy. No suspicious osseous lesion. IMPRESSION: 1. Mild heterogeneous lower lung predominant opacities may reflect infection and/or mild pulmonary edema, superimposed on advanced emphysema. 2. No evidence of acute PE. 3. New mediastinal and bilateral hilar lymphadenopathy, indeterminate in etiology. 4. Please see separate same day CT abdomen/pelvis report. Dictated by Wagner Stein MD @ 11/15/2021 8:44:33 PM Please note that all CT scans at this facility use dose modulation, iterative reconstruction, and/or weight-based dosing when appropriate to reduce radiation dose to as low as reasonably achievable. Dictated by: Wagner Stein MD @ 11/15/2021 20:44:40 (Electronically Signed)
[2021-11-15] MEDS ORDERED: Albuterol/Ipratropium 3.0-0.5 MG/3 ML Neb Soln NEB ONE (20:47)
[2021-11-16] MEDS ORDERED: Albuterol/Ipratropium 3.0-0.5 MG/3 ML Neb Soln NEB PRN (09:04)
[2021-11-16] MEDS ORDERED: methylPREDNISolone Sodium Succinate 40 MG/1 ML SDV IVPUSH ONE (09:14)
[2021-11-16] MEDS ORDERED: Aspirin 81 MG Tab.EC PO SCH (09:15)
[2021-11-16] MEDS ORDERED: RANITIDINE 75 MG PO SCH (09:15)
[2021-11-16] MEDS ORDERED: Isosorbide Mononitrate 30 MG Tab.ER PO SCH (09:15)
[2021-11-16] MEDS ORDERED: Metoprolol Tartrate 25 MG Tab PO SCH (09:15)
[2021-11-16] MEDS ORDERED: UMECLIDINIUM BROMIDE 62.5 MCG IH SCH (09:15)
[2021-11-16] MEDS ORDERED: Non-Formulary Medication 1 Each (Fluticasone/Salmeterol [Advair 250-50] 14 PUFF/INHALER Di INH SCH (09:15)
[2021-11-16] MEDS ORDERED: Pantoprazole 40 MG Tab.CR PO SCH (09:30)
[2021-11-16] MEDS ORDERED: LEVALBUTEROL HCL 1.25 MG/3 ML NEB SCH (10:00)
[2021-11-16] MEDS ORDERED: Heparin Sodium 5,000 Units/ML Vial IVPUSH ONE (10:27)
[2021-11-16] MEDS ORDERED: Ticagrelor 90 MG Tab PO ONE (10:27)
[2021-11-16] MEDS ORDERED: Aspirin 81 MG Tab.Chew PO ONE (10:27)
[2021-11-16] MEDS ORDERED: Heparin Sodium/D5W 25,000 UNITS/500 ML BAG IV SCH (10:30)
[2021-11-16] MEDS ORDERED: Levalbuterol HCl 1.25 MG/3 ML Neb INH SCH (11:00)
[2021-11-16 11:12] VITALS: BP 120/54; PULSE 80
[2021-11-16] MEDS ORDERED: atorvaSTATin 20 MG Tab PO SCH (21:00)
[2021-11-16] MEDS ORDERED: Tamsulosin 0.4 MG Cap.ER PO SCH (21:00)
--- NOTE | 2021-11-17 09:57 | CR ---
CHEST: Portable 11/15/2021 at 4:30 PM CLINICAL HISTORY:Cough COMPARISON:04/21/2021 FINDINGS: Patient has had previous sternotomy. Heart size and pulmonary vascularity are normal. There is some minimal patchy density in the left infrahilar region. This is somewhat exaggerated by lordotic positioning and some superimpositioning of perihilar structures. Minimal infiltrate is not excluded. Impression: Limited portable study due to positioning. Questionable patchy left infrahilar density. Minimal infiltrate is not excluded
--- NOTE | 2021-11-17 10:21 | CR ---
CHEST: Portable 11/16/2021 at 10:24 AM CLINICAL HISTORY:SOB COMPARISON:April 2021 FINDINGS: Heart size is borderline enlarged but similar to prior study. There has been previous sternotomy. Lungs are hyperaerated. There is some generalized increase in lung markings bilaterally compared to prior study. Impression: Generalized increase in lung markings suggests a pneumonitis.
== END 2021-11-16 12:20 ==
LOC: JP.ED 12:34
DX: I21.4 Non-ST elevation (NSTEMI) myocardial infarction (principal); I25.810 Atherosclerosis of coronary artery bypass graft(s) without angina pectoris; E78.00 Pure hypercholesterolemia, unspecified; I10 Essential (primary) hypertension; J44.9 Chronic obstructive pulmonary disease, unspecified; K21.9 Gastro-esophageal reflux disease without esophagitis; M19.90 Unspecified osteoarthritis, unspecified site; Z72.0 Tobacco use; Z91.013 Allergy to seafood; Z88.8 Allergy status to other drugs, medicaments and biological substances; Z88.0 Allergy status to penicillin; Z79.82 Long term (current) use of aspirin; Z79.899 Other long term (current) drug therapy; Z20.822 Contact with and (suspected) exposure to COVID-19
CPT/HCPCS: 0241U; 36415; 71045; 71275; 74177; 80053; 81001; 83605; 83690; 84145; 84484; 85025; 87040; 87086; 93005; 93010; 94640; 96365; 96366; 96367; 96375; 99284; 99285; A9270; J0696; J1644; J2405; J2920; J3010; J3490; J7030; J7120; J7612; Q9967; J7620-GY

== ENCOUNTER 2022-03-22 13:29 | Emergency (ER) | payer MEDICARE ==
[2022-03-22] MEDS ORDERED: Sodium Chloride 0.9% 10 ML Syringe FLUSH PRN (14:46)
[2022-03-22] MEDS ORDERED: Potassium Chloride 20 MEQ Tab.ER PO ONE (15:41)
[2022-03-22] MEDS ORDERED: Furosemide 20 MG/2 ML VIAL IVPUSH ONE (15:42)
[2022-03-22] MEDS ORDERED: Magnesium Sulfate/Water 2 GM in Premix Bag 1 BAG IV ONE (15:42)
[2022-03-22] MEDS ORDERED: Lidocaine 1% PF 2 ML SDV IV SCH (15:45)
[2022-03-22] MEDS ORDERED: Potassium Chloride 20 MEQ in Premix Bag 1 BAG IV SCH (16:00)
[2022-03-22 18:18] VITALS: BP 119/46; PULSE 79
== END 2022-03-22 18:54 | disposition home or self-care (01) ==
LOC: JP.ED 13:29
DX: I50.23 Acute on chronic systolic (congestive) heart failure (principal); I25.10 Atherosclerotic heart disease of native coronary artery without angina pectoris; E87.6 Hypokalemia; J43.9 Emphysema, unspecified; R09.02 Hypoxemia; E87.70 Fluid overload, unspecified; E78.00 Pure hypercholesterolemia, unspecified; I25.2 Old myocardial infarction; K21.9 Gastro-esophageal reflux disease without esophagitis; Z79.899 Other long term (current) drug therapy; Z79.82 Long term (current) use of aspirin; Z79.01 Long term (current) use of anticoagulants; Z91.013 Allergy to seafood; Z88.0 Allergy status to penicillin; Z88.8 Allergy status to other drugs, medicaments and biological substances; Z20.822 Contact with and (suspected) exposure to COVID-19
CPT/HCPCS: 36415; 71046; 80053; 81001; 82803; 83880; 84484; 85025; 85651; 86140; 93005; 93010; 96365; 96366; 96375; 99283; 99285-25; A9270-GY; J1940; J3475; J3480; U0002

== ENCOUNTER 2023-10-23 12:27 | Emergency (ER) | payer MEDICARE ==
[2023-10-23 13:55] LABS: BASOPHILS PERCENT AUTO 0.2 % (0.1-1.3); HEMATOCRIT 31.4 % (38.4-49.7); HEMOGLOBIN 10.7 g/dL (12.9-16.9); IMMATURE GRAN ABSOLUTE AUTO 0.03 K/uL (0.00-0.23); IMMATURE GRAN PERCENT AUTO 0.5 % (0.0-0.7); LYMPHOCYTES ABSOLUTE AUTO 0.67 K/uL (0.8-3.3); LYMPHOCYTES PERCENT AUTO 11.8 % (11.4-47.7); MEAN CORPUSCULAR HEMOGLOBIN 40.1 pg (31.6-35.5); MEAN CORPUSCULAR HGB CONC 34.1 g/dL (31.6-35.5); MONOCYTES ABSOLUTE AUTO 3.05 K/uL (0.20-0.90); MONOCYTES PERCENT AUTO 53.9 % (3.3-12.6); NEUTROPHILS PERCENT AUTO 33.6 % (40.0-78.1); PLATELET COUNT,PLT 150 K/uL (130-375); RED BLOOD CELL COUNT 2.67 M/uL (4.14-5.76); WHITE BLOOD CELL COUNT,WBC 5.7 K/uL (3.2-11.0)
[2023-10-23 14:10] LABS: BASOPHILS ABSOLUTE AUTO 0.01 K/uL (0.00-0.10)
[2023-10-23 14:11] LABS: MEAN CORPUSCULAR VOLUME 117.6 fL (81.4-99.0)
[2023-10-23 14:23] LABS: CALCIUM 8.2 mg/dL (8.5-10.1); CREATININE 0.8 mg/dL (0.8-1.3); EST CRCL DRUG DOSING (CG) 74.21 mL/min
[2023-10-23 14:24] LABS: ANION GAP 12.9 mmol/L (5.0-14.0); POTASSIUM,K 2.9 mmol/L (3.6-5.2)
[2023-10-23] MEDS: NS + KCl 20mEq/L 1,000 ML IV SCH (14:51)
[2023-10-23] MEDS: Potassium Chloride 20 MEQ Tab.ER PO ONE (14:51)
[2023-10-23 16:53] VITALS: BP 128/61; PULSE 72
[2023-10-23 17:34] LABS: CALCIUM 7.8 mg/dL (8.5-10.1); CREATININE 0.8 mg/dL (0.8-1.3); EST CRCL DRUG DOSING (CG) 74.21 mL/min; POTASSIUM,K 3.5 mmol/L (3.6-5.2)
[2023-10-23 17:36] LABS: ANION GAP 13.5 mmol/L (5.0-14.0)
== END 2023-10-23 17:52 | disposition home or self-care (01) ==
LOC: JP.ED 12:27
DX: E86.0 Dehydration (principal); E87.6 Hypokalemia; I10 Essential (primary) hypertension; I25.2 Old myocardial infarction; I25.10 Atherosclerotic heart disease of native coronary artery without angina pectoris; J44.9 Chronic obstructive pulmonary disease, unspecified; M19.90 Unspecified osteoarthritis, unspecified site; E78.00 Pure hypercholesterolemia, unspecified; K21.9 Gastro-esophageal reflux disease without esophagitis; F17.210 Nicotine dependence, cigarettes, uncomplicated; Z79.82 Long term (current) use of aspirin; Z79.899 Other long term (current) drug therapy; Z88.0 Allergy status to penicillin; Z88.8 Allergy status to other drugs, medicaments and biological substances; Z91.013 Allergy to seafood; Z95.1 Presence of aortocoronary bypass graft
CPT/HCPCS: 36415; 71045; 80048; 83605; 83880; 85025; 96365; 96366; 99284; A9270; J3480

== ENCOUNTER 2023-12-23 11:08 | Emergency (ER) | payer MEDICARE ==
[2023-12-23 12:01] LABS: HEMATOCRIT 30.6 % (38.4-49.7); HEMOGLOBIN 10.1 g/dL (12.9-16.9); IMMATURE GRAN ABSOLUTE AUTO 0.03 K/uL (0.00-0.23); IMMATURE GRAN PERCENT AUTO 0.7 % (0.0-0.7); LYMPHOCYTES ABSOLUTE AUTO 0.18 K/uL (0.8-3.3); MEAN CORPUSCULAR HEMOGLOBIN 40.4 pg (31.6-35.5); MEAN CORPUSCULAR VOLUME 122.4 fL (81.4-99.0); MONOCYTES ABSOLUTE AUTO 3.75 K/uL (0.20-0.90); MONOCYTES PERCENT AUTO 82.4 % (3.3-12.6); NEUTROPHILS ABSOLUTE AUTO 0.59 K/uL (1.0-7.6); NEUTROPHILS PERCENT AUTO 12.9 % (40.0-78.1); PLATELET COUNT,PLT 119 K/uL (130-375); WHITE BLOOD CELL COUNT,WBC 4.6 K/uL (3.2-11.0)
[2023-12-23] MEDS: Sodium Chloride 0.9% 1,000 ML IV ONE (12:21)
[2023-12-23 12:31] LABS: A/G RATIO 0.9 (1.2-2.2); ALANINE AMINOTRANSFERASE,ALT 17 U/L (12-78); ALBUMIN 3.4 g/dL (3.4-5.0); ALKALINE PHOSPHATASE 99 U/L (46-116); ASPARTATE AMNIOTRANSFERASE,AST 37 U/L (15-37); BILIRUBIN TOTAL 1.8 mg/dL (0.2-1.0); BLOOD UREA NITROGEN,BUN 14 mg/dL (7-18); CALCIUM 8.3 mg/dL (8.5-10.1); CARBON DIOXIDE,CO2 30 mmol/L (21-32); CREATININE 1.1 mg/dL (0.8-1.3); ESTIMATED GFR 68 mL/min (>60); GLUCOSE RANDOM 105 mg/dL (74-106); PRO B-TYPE NATRIUR PEPT,BNPPRO 8280 pg/mL (5-450)
[2023-12-23 12:43] LABS: CORONAVIRUS COVID-19 NAA NEGATIVE (NEGATIVE); INFLUENZA A NAA POSITIVE (NEGATIVE); INFLUENZA B NAA NEGATIVE (NEGATIVE); RESPIRATORY SYNCYTIAL VIR NAA NEGATIVE (NEGATIVE)
[2023-12-23 12:45] LABS: ANION GAP 11.3 mmol/L (5.0-14.0); CHLORIDE,CL 100 mmol/L (100-108); POTASSIUM,K 3.3 mmol/L (3.6-5.2); SODIUM,NA 138 mmol/L (140-148)
[2023-12-23 12:46] LABS: TROPONIN I HIGH SENSITIVITY 3951.2 pg/mL (<=60.3)
[2023-12-23] MEDS: Aspirin 81 MG Tab.Chew PO ONE (13:03)
[2023-12-23] MEDS: Heparin Sodium 5,000 Units/ML Vial IVPUSH ONE (13:04)
[2023-12-23] MEDS ORDERED: Sodium Chloride 0.9% 10 ML Syringe FLUSH PRN (13:09)
[2023-12-23] MEDS ORDERED: Sodium Chloride 0.9% 100 ML IV ONE (13:09)
[2023-12-23] MEDS ORDERED: Iopamidol 755 Mg/ML 100 ML Bottle IV SCH (13:15)
[2023-12-23] MEDS: Nitroglycerin 0.4 MG Tab.SL SL PRN (13:31)
[2023-12-23 13:33] VITALS: BP 119/68
[2023-12-23] MEDS: Heparin Sodium/D5W 25,000 UNITS/500 ML BAG IV SCH (13:33)
[2023-12-23 13:35] VITALS: PULSE 119
== END 2023-12-23 16:04 | disposition critical access hospital (66) ==
LOC: JP.ED 11:08
DX: I21.4 Non-ST elevation (NSTEMI) myocardial infarction (principal); J10.1 Influenza due to other identified influenza virus with other respiratory manifestations; I10 Essential (primary) hypertension; I25.810 Atherosclerosis of coronary artery bypass graft(s) without angina pectoris; I25.2 Old myocardial infarction; E78.00 Pure hypercholesterolemia, unspecified; F17.210 Nicotine dependence, cigarettes, uncomplicated; Z88.0 Allergy status to penicillin; Z91.013 Allergy to seafood; Z88.8 Allergy status to other drugs, medicaments and biological substances; Z79.82 Long term (current) use of aspirin; Z79.899 Other long term (current) drug therapy
CPT/HCPCS: 0241U; 36415; 71046; 71275; 80053; 83605; 83880; 84145; 84484; 85025; 85379; 93005; 96361; 96365; 96366; 99285; A9270; J1644; J7030